=== PATIENT | male | born 1955 | race Caucasian/White ===

== ENCOUNTER 2021-11-06 05:03 | Emergency (ER) | payer OTHER, MEDICARE ==
[~2021-11-06] VITALS: Ht 170.2 cm; Wt 77.8 kg
[~2021-11-06 05:03] MED LIST: DOCU100C40 PO; HYDR-3965 PO
--- NOTE | 2021-11-06 05:11 | NUR ---
PT'S SON'S NAME IS MIKO. PHONE NUMBER IS [phone].
[2021-11-06 06:07] VITALS: BP 111/79
--- NOTE | 2021-11-06 06:25 | NUR ---
DR. BOOTH AT BEDSIDE.
[2021-11-06] MEDS ORDERED: BISA10SU60 RC (06:42)
[2021-11-06] MEDS ORDERED: bisacodyl 10mg suppository rectal RC STA (06:47)
== END 2021-11-06 07:29 | disposition home or self-care (01) ==
LOC: ER 05:03
DX: K59.00 Constipation, unspecified (principal); G89.29 Other chronic pain
CPT/HCPCS: 99282

== ENCOUNTER 2023-06-08 09:26 | Emergency (ER) | payer OTHER, MEDICARE, MEDICAID ==
[~2023-06-08] VITALS: Ht 170.2 cm; Wt 79.5 kg
[~2023-06-08 09:26] MED LIST changes: +CARB-395 PO; +DONE-55 PO
[2023-06-08 09:48] VITALS: BP 146/76; PULSE 99; RESP 18; TEMP 97.8; O2SAT 98
[2023-06-08 10:43] LABS: BASOPHILS % (AUTO) 0.1 % (0-1); EOSINOPHILS % (AUTO) 0.1 % (0-6); HEMOGLOBIN 15.6 g/dl (14.0-17.9); MONOCYTES # (AUTO) 0.6 X10'3 (0-0.9); NEUTROPHILS # (AUTO) 2.1 X10'3 (1.8-7.7)
[2023-06-08 10:45] LABS: HEMATOCRIT 44.3 % (42.0-52.0); LYMPHOCYTES # (AUTO) 4.5 X10'3 (1.1-4.8); MEAN CORPUSCULAR HEMOGLOBIN 32.5 PG (27.0-31.0); MEAN CORPUSCULAR HGB CONC 35.2 g/dL (33.0-36.5); MEAN CORPUSCULAR VOLUME 92.5 FL (78-98); MEAN PLATELET VOLUME 7.7 FL (7.4-10.4); MONOCYTES % (AUTO) 7.9 % (2-12); NEUTROPHILS % (AUTO) 28.9 % (42-75); PLATELET COUNT 200 X10'3 (140-440); RED BLOOD COUNT 4.78 X10'6 (4.70-6.10); RED CELL DISTRIBUTION WIDTH 12.8 % (11.5-14.5); WHITE BLOOD COUNT 7.1 X10'3 (4.5-11.0)
[2023-06-08 11:09] LABS: ALBUMIN 3.8 G/DL (3.4-5.0); ANION GAP 10 (8-16); BLOOD UREA NITROGEN 10 MG/DL (7-18); BUN/CREATININE RATIO 11.6 (10.0-20.0); CHLORIDE 105 MMOL/L (99-107); CREATININE 0.86 MG/DL (0.60-1.10); ETHANOL < 10 MG/DL (<10); GLUCOSE 104 MG/DL (70-104); POTASSIUM 3.7 MMOL/L (3.5-5.1); SODIUM 140 MMOL/L (135-145); TOTAL CARBON DIOXIDE 24.6 MMOL/L (24-32); eCRCL 77 ML/MIN; eGFR 88 ML/MIN
[2023-06-08 11:12] LABS: TOTAL CELLS COUNTED 100
[2023-06-08 11:13] LABS: PLATELET ESTIMATE NORMAL
[2023-06-08 11:15] LABS: SMUDGE CELLS 1+
== END 2023-06-08 17:04 | disposition left against medical advice (07) ==
LOC: ER 09:27
DX: R45.851 Suicidal ideations (principal); Z79.899 Other long term (current) drug therapy; Z88.8 Allergy status to other drugs, medicaments and biological substances
CPT/HCPCS: 80048; 80320; 85007; 85025; 99284; 99285

== ENCOUNTER 2023-06-16 06:47 | Emergency (ER) | payer OTHER, MEDICARE, MEDICAID ==
[~2023-06-16] VITALS: Ht 170.2 cm; Wt 73.0 kg
[2023-06-16 09:25] LABS: BASOPHILS % (AUTO) 0.1 % (0-1); EOSINOPHILS % (AUTO) 0.1 % (0-6); HEMATOCRIT 38.5 % (42.0-52.0); HEMOGLOBIN 13.1 g/dl (14.0-17.9); LYMPHOCYTES # (AUTO) 2.8 X10'3 (1.1-4.8); LYMPHOCYTES % (AUTO) 24.4 % (21-51); MEAN CORPUSCULAR HEMOGLOBIN 31.6 PG (27.0-31.0); MEAN CORPUSCULAR VOLUME 92.9 FL (78-98); MEAN PLATELET VOLUME 7.9 FL (7.4-10.4); MONOCYTES # (AUTO) 0.8 X10'3 (0-0.9); MONOCYTES % (AUTO) 6.9 % (2-12); NEUTROPHILS # (AUTO) 7.9 X10'3 (1.8-7.7); NEUTROPHILS % (AUTO) 68.5 % (42-75); PLATELET COUNT 199 X10'3 (140-440); RED BLOOD COUNT 4.15 X10'6 (4.70-6.10); WHITE BLOOD COUNT 11.5 X10'3 (4.5-11.0)
[2023-06-16] MEDS ORDERED: AZIT-164 PO (09:40)
[2023-06-16 09:53] LABS: ALBUMIN 3.1 G/DL (3.4-5.0); ANION GAP 7 (8-16); BLOOD UREA NITROGEN 15 MG/DL (7-18); BUN/CREATININE RATIO 18.3 (10.0-20.0); CALCIUM 8.4 MG/DL (8.5-10.1); CHLORIDE 108 MMOL/L (99-107); CREATININE 0.82 MG/DL (0.60-1.10); GLUCOSE 98 MG/DL (70-104); POTASSIUM 3.1 MMOL/L (3.5-5.1); PRO BRAIN NATRIURETIC PEPTIDE 401 PG/ML (0-125); SODIUM 144 MMOL/L (135-145); TOTAL CARBON DIOXIDE 28.8 MMOL/L (24-32); eCRCL 81 ML/MIN; eGFR > 90 ML/MIN
[2023-06-16 11:01] VITALS: BP 125/94; PULSE 89; RESP 23; TEMP 98.4; O2SAT 97
== END 2023-06-16 11:06 | disposition home or self-care (01) ==
LOC: ER 06:48
DX: J18.9 Pneumonia, unspecified organism (principal); R05.9 Cough, unspecified; Z88.8 Allergy status to other drugs, medicaments and biological substances; F03.90 Unspecified dementia, unspecified severity, without behavioral disturbance, psychotic disturbance, mood disturbance, and anxiety; G89.29 Other chronic pain; Z20.822 Contact with and (suspected) exposure to COVID-19
CPT/HCPCS: 36415; 71045; 80048; 83880; 84484; 85025; 87502; 87503; 87811; 93005; 99285

== ENCOUNTER 2023-06-19 07:39 | Emergency (ER) | payer OTHER, MEDICARE, MEDICAID ==
[~2023-06-19] VITALS: Ht 170.2 cm; Wt 77.3 kg
[~2023-06-19 07:39] MED LIST changes: +AZIT-164 PO
[2023-06-19 08:48] LABS: BILIRUBIN,URINE NEGATIVE (Neg); CLARITY,URINE CLEAR (Clear); COLOR,URINE YELLOW (Yellow); GLUCOSE, URINE NEGATIVE (Neg); KETONES,URINE NEGATIVE (Neg); LEUKOCYTE ESTERASE ,URINE NEGATIVE (Neg); NITRITES, URINE NEGATIVE (Neg); OCCULT BLOOD,URINE NEGATIVE (Neg); PROTEIN,URINE TRACE mg/dl (Neg)
[2023-06-19 08:49] LABS: BASOPHILS % (AUTO) 0.1 % (0-1); EOSINOPHILS % (AUTO) 0.4 % (0-6); HEMATOCRIT 42.5 % (42.0-52.0); HEMOGLOBIN 14.4 g/dl (14.0-17.9); LYMPHOCYTES # (AUTO) 2.7 X10'3 (1.1-4.8); LYMPHOCYTES % (AUTO) 26.9 % (21-51); MEAN CORPUSCULAR HEMOGLOBIN 31.6 PG (27.0-31.0); MEAN CORPUSCULAR HGB CONC 33.8 g/dL (33.0-36.5); MEAN CORPUSCULAR VOLUME 93.3 FL (78-98); MEAN PLATELET VOLUME 8.3 FL (7.4-10.4); MONOCYTES # (AUTO) 0.9 X10'3 (0-0.9); MONOCYTES % (AUTO) 8.6 % (2-12); NEUTROPHILS # (AUTO) 6.4 X10'3 (1.8-7.7); PLATELET COUNT 271 X10'3 (140-440); RED BLOOD COUNT 4.56 X10'6 (4.70-6.10); RED CELL DISTRIBUTION WIDTH 12.8 % (11.5-14.5)
[2023-06-19 08:53] LABS: ALBUMIN 3.1 G/DL (3.4-5.0); ANION GAP 6 (8-16); BLOOD UREA NITROGEN 8 MG/DL (7-18); BUN/CREATININE RATIO 9.3 (10.0-20.0); CALCIUM 8.6 MG/DL (8.5-10.1); CHLORIDE 104 MMOL/L (99-107); CREATININE 0.86 MG/DL (0.60-1.10); ETHANOL < 10 MG/DL (<10); GLUCOSE 97 MG/DL (70-104); POTASSIUM 3.1 MMOL/L (3.5-5.1); SODIUM 140 MMOL/L (135-145); TOTAL CARBON DIOXIDE 30.1 MMOL/L (24-32); eCRCL 77 ML/MIN; eGFR 88 ML/MIN
[2023-06-19 08:55] LABS: UA COLLECTION TYPE NON-SPECIFIED
[2023-06-19 08:56] LABS: BACTERIA,URINE NONE SEEN /HPF (Neg); MUCUS STRANDS FEW /LPF (Neg); RBC,URINE 0-2 /HPF (0-2); SQUAMOUS EPITHELIAL CELL,UR NONE SEEN /LPF (FEW); WBC,URINE NONE SEEN /HPF (0-4)
[2023-06-19 09:03] LABS: URINE AMPHETAMINE SCREEN NEGATIVE (Neg); URINE BARBITUATE SCREEN NEGATIVE (Neg); URINE BENZODIAZEPINES SCREEN NEGATIVE (Neg); URINE CANNABINOID SCREEN NEGATIVE (Neg); URINE COCAINE SCREEN NEGATIVE (Neg); URINE METHADONE SCREEN NEGATIVE (Neg); URINE OPIATE SCREEN NEGATIVE (Neg); URINE PHENCYCLIDINE SCREEN NEGATIVE (Neg)
[2023-06-19 12:30] VITALS: BP 124/56; PULSE 62; RESP 14; TEMP 97.2; O2SAT 97
== END 2023-06-19 12:33 | disposition home or self-care (01) ==
LOC: ER 07:40
DX: U07.1 COVID-19 (principal); R45.851 Suicidal ideations; Z59.00 Homelessness unspecified; G89.29 Other chronic pain; G20.A1 Parkinson's disease without dyskinesia, without mention of fluctuations; F02.80 Dementia in other diseases classified elsewhere, unspecified severity, without behavioral disturbance, psychotic disturbance, mood disturbance, and anxiety; Z88.8 Allergy status to other drugs, medicaments and biological substances
CPT/HCPCS: 36415; 80048; 80305; 80320; 81001; 85025; 87811; 99284

== ENCOUNTER 2024-05-10 18:57 | Emergency (ER) | payer OTHER, MEDICARE ==
[~2024-05-10] VITALS: Ht 170.2 cm; Wt 79.0 kg
[~2024-05-10 18:57] MED LIST changes: -AZIT-164 PO; -CARB-395 PO; +CARB-491 PO
[2024-05-10 19:46] LABS: BASOPHILS % (AUTO) 0.3 % (0-1); EOSINOPHILS % (AUTO) 0.1 % (0-6); HEMATOCRIT 43.9 % (42.0-52.0); HEMOGLOBIN 14.8 g/dl (14.0-17.9); LYMPHOCYTES # (AUTO) 5.3 X10'3 (1.1-4.8); LYMPHOCYTES % (AUTO) 49.7 % (21-51); MEAN CORPUSCULAR HEMOGLOBIN 32.2 PG (27.0-31.0); MEAN CORPUSCULAR HGB CONC 33.7 g/dL (33.0-36.5); MEAN CORPUSCULAR VOLUME 95.6 FL (78-98); MEAN PLATELET VOLUME 7.2 FL (7.4-10.4); MONOCYTES # (AUTO) 0.7 X10'3 (0-0.9); MONOCYTES % (AUTO) 6.4 % (2-12); NEUTROPHILS # (AUTO) 4.6 X10'3 (1.8-7.7); NEUTROPHILS % (AUTO) 43.5 % (42-75); PLATELET COUNT 274 X10'3 (140-440); RED BLOOD COUNT 4.59 X10'6 (4.70-6.10); RED CELL DISTRIBUTION WIDTH 13.8 % (11.5-14.5); WHITE BLOOD COUNT 10.7 X10'3 (4.5-11.0)
[2024-05-10 20:11] LABS: ALANINE AMINOTRANSFERASE 14 U/L (12-78); ALBUMIN 4.2 G/DL (3.4-5.0); ALBUMIN/GLOBULIN RATIO 1.6 (1.1-1.5); ALKALINE PHOSPHATASE 77 IU/L (46-116); ANION GAP 5 (8-16); ASPARTATE AMINO TRANSFERASE 16 U/L (10-37); BILIRUBIN,TOTAL 0.4 MG/DL (0.1-1.0); BLOOD UREA NITROGEN 14 MG/DL (7-18); BUN/CREATININE RATIO 18.9 (10.0-20.0); CHLORIDE 104 MMOL/L (99-107); CREATININE 0.74 MG/DL (0.60-1.10); GLUCOSE 115 MG/DL (70-104); POTASSIUM 4.1 MMOL/L (3.5-5.1); PRO BRAIN NATRIURETIC PEPTIDE 121 PG/ML (0-125); SODIUM 139 MMOL/L (135-145); TOTAL CARBON DIOXIDE 30.4 MMOL/L (24-32); TOTAL PROTEIN 6.9 G/DL (6.4-8.2); eCRCL 88 ML/MIN; eGFR > 90 ML/MIN
[2024-05-10] MEDS: LORazepam 2 mg/ml vial IV ONE (21:40)
[2024-05-10] MEDS: midazolam 1 mg/ML 2ml injection IV ONE (23:15)
[2024-05-10] MEDS: normal saline 1000ml 1,000 ML IV ONE (23:15)
[2024-05-10 23:21] LABS: BILIRUBIN,URINE NEGATIVE (Neg); CLARITY,URINE CLEAR (Clear); COLOR,URINE YELLOW (Yellow); GLUCOSE, URINE NEGATIVE (Neg); KETONES,URINE TRACE mg/dl (Neg); LEUKOCYTE ESTERASE ,URINE NEGATIVE (Neg); NITRITES, URINE NEGATIVE (Neg); OCCULT BLOOD,URINE NEGATIVE (Neg); PROTEIN,URINE NEGATIVE (Neg); URINE AMPHETAMINE SCREEN NEGATIVE (Neg); URINE BARBITUATE SCREEN NEGATIVE (Neg); URINE BENZODIAZEPINES SCREEN NEGATIVE (Neg); URINE CANNABINOID SCREEN NEGATIVE (Neg); URINE COCAINE SCREEN NEGATIVE (Neg); URINE METHADONE SCREEN NEGATIVE (Neg); URINE OPIATE SCREEN POSITIVE (Neg); URINE PHENCYCLIDINE SCREEN NEGATIVE (Neg); UROBILINOGEN,URINE 0.2 E.U/dL (0.2-1.0)
[2024-05-10 23:29] LABS: UA COLLECTION TYPE CLN CATCH MIDSTREAM
[2024-05-11 00:46] VITALS: BP 140/80; PULSE 99; RESP 24; TEMP 99; O2SAT 100
== END 2024-05-11 01:09 | disposition home or self-care (01) ==
LOC: ER 18:57
DX: Z00.00 Encounter for general adult medical examination without abnormal findings (principal); F02.82 Dementia in other diseases classified elsewhere, unspecified severity, with psychotic disturbance; G20.A1 Parkinson's disease without dyskinesia, without mention of fluctuations; Z88.8 Allergy status to other drugs, medicaments and biological substances
CPT/HCPCS: 36415; 71045; 80053; 80305; 81003; 83605; 83880; 84145; 84484; 85025; 87040; 93005; 96361; 96374; 96375; 99285; J2060; J2250; J7030

== ENCOUNTER 2024-05-11 18:45 | Emergency (ER) | payer OTHER, MEDICARE ==
[~2024-05-11] VITALS: Ht 170.2 cm; Wt 175.0 kg
[2024-05-11 18:48] VITALS: TEMP 98.2
[2024-05-11 19:34] LABS: BASOPHILS % (AUTO) 0.2 % (0-1); EOSINOPHILS % (AUTO) 0.3 % (0-6); HEMATOCRIT 42.3 % (42.0-52.0); HEMOGLOBIN 14.6 g/dl (14.0-17.9); LYMPHOCYTES # (AUTO) 5.3 X10'3 (1.1-4.8); LYMPHOCYTES % (AUTO) 60.8 % (21-51); MEAN CORPUSCULAR HGB CONC 34.6 g/dL (33.0-36.5); MEAN CORPUSCULAR VOLUME 95.3 FL (78-98); MEAN PLATELET VOLUME 7.3 FL (7.4-10.4); MONOCYTES # (AUTO) 0.5 X10'3 (0-0.9); MONOCYTES % (AUTO) 5.4 % (2-12); NEUTROPHILS # (AUTO) 2.9 X10'3 (1.8-7.7); NEUTROPHILS % (AUTO) 33.3 % (42-75); PLATELET COUNT 245 X10'3 (140-440); RED BLOOD COUNT 4.44 X10'6 (4.70-6.10); RED CELL DISTRIBUTION WIDTH 13.8 % (11.5-14.5); WHITE BLOOD COUNT 8.7 X10'3 (4.5-11.0)
[2024-05-11] MEDS: normal saline 1000ml 1,000 ML IV ONE (19:36)
[2024-05-11 19:37] LABS: APTT 27 SECONDS (22-32); D-DIMER 0.23 MG/L FEU (0-0.50); PROTHROMBIN TIME 10.6 SECONDS (9.0-12.0)
[2024-05-11 19:54] LABS: TOTAL CELLS COUNTED 100
[2024-05-11 19:56] LABS: SMUDGE CELLS FEW
[2024-05-11 19:57] LABS: ALANINE AMINOTRANSFERASE 17 U/L (12-78); ALBUMIN/GLOBULIN RATIO 1.5 (1.1-1.5); ALKALINE PHOSPHATASE 75 IU/L (46-116); ANION GAP 6 (8-16); ASPARTATE AMINO TRANSFERASE 17 U/L (10-37); BILIRUBIN,TOTAL 0.4 MG/DL (0.1-1.0); BLOOD UREA NITROGEN 9 MG/DL (7-18); BUN/CREATININE RATIO 11.1 (10.0-20.0); CALCIUM 8.8 MG/DL (8.5-10.1); CHLORIDE 106 MMOL/L (99-107); CREATININE 0.81 MG/DL (0.60-1.10); GLUCOSE 97 MG/DL (70-104); POTASSIUM 3.9 MMOL/L (3.5-5.1); SODIUM 141 MMOL/L (135-145); TOTAL CARBON DIOXIDE 29.3 MMOL/L (24-32); TOTAL PROTEIN 6.6 G/DL (6.4-8.2); eCRCL 80 ML/MIN; eGFR > 90 ML/MIN
[2024-05-11 20:06] LABS: ETHANOL < 10 MG/DL (<10); MAGNESIUM 2.2 MG/DL (1.5-2.4); THYROID STIMULATING HORMONE 1.53 ulU/ml (0.34-4.50)
[2024-05-11 21:57] LABS: BILIRUBIN,URINE NEGATIVE (Neg); CLARITY,URINE SLIGHTLY CLOUDY (Clear); COLOR,URINE YELLOW (Yellow); GLUCOSE, URINE NEGATIVE (Neg); KETONES,URINE NEGATIVE (Neg); LEUKOCYTE ESTERASE ,URINE NEGATIVE (Neg); NITRITES, URINE NEGATIVE (Neg); OCCULT BLOOD,URINE LARGE (Neg); PROTEIN,URINE NEGATIVE (Neg); UROBILINOGEN,URINE 0.2 E.U/dL (0.2-1.0)
[2024-05-11 22:00] LABS: UA COLLECTION TYPE VOIDED
[2024-05-11 22:04] LABS: BACTERIA,URINE NONE SEEN /HPF (Neg); RBC,URINE 20-50 /HPF (0-2); SQUAMOUS EPITHELIAL CELL,UR NONE SEEN /LPF (FEW); WBC,URINE 0-4 /HPF (0-4)
[2024-05-11 22:24] LABS: URINE AMPHETAMINE SCREEN NEGATIVE (Neg); URINE BARBITUATE SCREEN NEGATIVE (Neg); URINE BENZODIAZEPINES SCREEN NEGATIVE (Neg); URINE CANNABINOID SCREEN NEGATIVE (Neg); URINE COCAINE SCREEN NEGATIVE (Neg); URINE METHADONE SCREEN NEGATIVE (Neg); URINE OPIATE SCREEN POSITIVE (Neg); URINE PHENCYCLIDINE SCREEN NEGATIVE (Neg)
[2024-05-11 23:31] VITALS: BP 125/81; PULSE 87; RESP 18; O2SAT 97
== END 2024-05-11 23:35 | disposition home or self-care (01) ==
LOC: ER 18:46
DX: H53.8 Other visual disturbances (principal); F02.80 Dementia in other diseases classified elsewhere, unspecified severity, without behavioral disturbance, psychotic disturbance, mood disturbance, and anxiety; G20.A1 Parkinson's disease without dyskinesia, without mention of fluctuations
CPT/HCPCS: 36415; 70450; 80053; 80305; 80320; 81001; 82140; 83735; 84443; 84484; 85007; 85025; 85379; 85610; 85730; 93005; 96360; 99285; J7030; 96361

== ENCOUNTER 2024-06-11 01:50 | Inpatient (IN) | payer OTHER, MEDICARE ==
[~2024-06-11] VITALS: Ht 170.2 cm; Wt 66.0 kg
[2024-06-11] VITALS (11 sets, daily range): BP systolic 120–157; BP diastolic 53–98; PULSE 78–90; RESP 13–18; TEMP 98; O2SAT 96–99
[2024-06-11 02:25] LABS: BASOPHILS % (AUTO) 0.1 % (0-1); EOSINOPHILS # (AUTO) 0.1 X10'3 (0-0.9); EOSINOPHILS % (AUTO) 0.7 % (0-6); HEMATOCRIT 39.2 % (42.0-52.0); HEMOGLOBIN 13.4 g/dl (14.0-17.9); LYMPHOCYTES # (AUTO) 4.7 X10'3 (1.1-4.8); LYMPHOCYTES % (AUTO) 54.3 % (21-51); MEAN CORPUSCULAR HGB CONC 34.1 g/dL (33.0-36.5); MEAN CORPUSCULAR VOLUME 96.8 FL (78-98); MEAN PLATELET VOLUME 7.1 FL (7.4-10.4); MONOCYTES # (AUTO) 0.7 X10'3 (0-0.9); MONOCYTES % (AUTO) 8.3 % (2-12); NEUTROPHILS # (AUTO) 3.2 X10'3 (1.8-7.7); NEUTROPHILS % (AUTO) 36.6 % (42-75); PLATELET COUNT 232 X10'3 (140-440); RED BLOOD COUNT 4.06 X10'6 (4.70-6.10); RED CELL DISTRIBUTION WIDTH 13.9 % (11.5-14.5); WHITE BLOOD COUNT 8.6 X10'3 (4.5-11.0)
[2024-06-11 02:36] LABS: ALANINE AMINOTRANSFERASE 17 U/L (12-78); ALBUMIN 3.6 G/DL (3.4-5.0); ALBUMIN/GLOBULIN RATIO 1.5 (1.1-1.5); ALKALINE PHOSPHATASE 70 IU/L (46-116); ANION GAP 4 (8-16); ASPARTATE AMINO TRANSFERASE 18 U/L (10-37); BILIRUBIN,TOTAL 0.3 MG/DL (0.1-1.0); BLOOD UREA NITROGEN 12 MG/DL (7-18); BUN/CREATININE RATIO 15.2 (10.0-20.0); CALCIUM 8.9 MG/DL (8.5-10.1); CHLORIDE 107 MMOL/L (99-107); CREATININE 0.79 MG/DL (0.60-1.10); GLUCOSE 93 MG/DL (70-104); POTASSIUM 3.5 MMOL/L (3.5-5.1); SODIUM 141 MMOL/L (135-145); TOTAL CARBON DIOXIDE 30.4 MMOL/L (24-32); eCRCL 82 ML/MIN; eGFR > 90 ML/MIN
[2024-06-11 02:43] LABS: PRO BRAIN NATRIURETIC PEPTIDE 120 PG/ML (0-125)
[2024-06-11 02:57] LABS: PLATELET ESTIMATE NORMAL; TOTAL CELLS COUNTED 100
[2024-06-11] MEDS ORDERED: ondansetron/PF 4mg/2ml inj IV PRN (05:35)
[2024-06-11] MEDS ORDERED: magnesium sulf-water 2g/50mL 50 ML IV PRN (05:35)
[2024-06-11] MEDS ORDERED: morphine 2 MG/ML inj. syringe IV PRN ×2 (05:35)
[2024-06-11] MEDS ORDERED: magnesium hydroxide 30ml (MOM) UD suspension PO PRN (05:35)
[2024-06-11] MEDS ORDERED: acetaminophen 325mg tablet PO PRN (05:35)
[2024-06-11] MEDS ORDERED: mag hydrox/Alum hydrox/simeth 30ml oral suspension PO PRN (05:35)
[2024-06-11] MEDS ORDERED: magnesium sulf-water 4G/100mL 100 ML IV PRN (05:35)
[2024-06-11] MEDS ORDERED: potassium Cl 40MEQ/1/2NS 520ml 520 ML IV PRN (05:35)
[2024-06-11] MEDS ORDERED: magnesium Cl slow-release 64mg tablet PO PRN (05:35)
[2024-06-11 06:24] LABS: APTT 27 SECONDS (22-32)
[2024-06-11] MEDS: propranolol 10mg tablet PO ONE (06:34)
[2024-06-11 06:48] LABS: D-DIMER 0.31 MG/L FEU (0-0.50)
[2024-06-11] MEDS: K and/or MAG REPLACEMENT MC SCH (08:00)
[2024-06-11] MEDS: docusate sod 100mg capsule PO SCH (08:18)
[2024-06-11] MEDS: enoxaparin 40mg/0.4ml syringe SUBCUT SCH (08:19)
[2024-06-11] MEDS ORDERED: nitroGLYCERIN 0.4mg SUBLingual tab SL PRN ×2 (08:40→14:25)
[2024-06-11] MEDS ORDERED: metoprolol tartrate 1mg/ml inj IV PRN (08:40)
[2024-06-11] MEDS ORDERED: aminophylline 500mg/20ml vial IV PRN (08:40)
[2024-06-11 08:52] LABS: MAGNESIUM 2.2 MG/DL (1.5-2.4)
[2024-06-11 09:25] LABS: CHOL/HDL RATIO 3.6 (0.00-4.99); CHOLESTEROL 185 MG/DL (0-200); HDL CHOLESTEROL 51 MG/DL (35-60); LDL CHOLESTEROL 108 MG/DL (50-100); TRIGLYCERIDES 114 MG/DL (20-135)
[2024-06-11] MEDS: regadenoson 0.4mg/5ml syringe IV PRN (11:17)
[2024-06-11] MEDS ORDERED: HYDROcodone/acetaminophen 5mg/325mg tablet PO PRN (14:25)
[2024-06-11] MEDS ORDERED: docusate sod 100mg capsule PO SCH (20:00)
[2024-06-11] MEDS: carbidoba-levodopa 25-100mg tablet PO SCH (20:21)
[2024-06-11] MEDS: donepezil 5mg tablet PO SCH (20:21)
[2024-06-11] MEDS: sacubitril/valsartan 24mg-26mg tablet PO SCH (20:22)
[2024-06-12] VITALS (8 sets, daily range): BP systolic 71–115; BP diastolic 36–75; PULSE 64–76; RESP 14–20; TEMP 98.2–98.4; O2SAT 93–96
[2024-06-12 06:38] LABS: BASOPHILS % (AUTO) 0.1 % (0-1); EOSINOPHILS # (AUTO) 0.1 X10'3 (0-0.9); EOSINOPHILS % (AUTO) 0.8 % (0-6); HEMATOCRIT 39.7 % (42.0-52.0); HEMOGLOBIN 13.6 g/dl (14.0-17.9); LYMPHOCYTES # (AUTO) 3.9 X10'3 (1.1-4.8); LYMPHOCYTES % (AUTO) 52.2 % (21-51); MEAN CORPUSCULAR HEMOGLOBIN 32.7 PG (27.0-31.0); MEAN CORPUSCULAR HGB CONC 34.3 g/dL (33.0-36.5); MEAN CORPUSCULAR VOLUME 95.5 FL (78-98); MEAN PLATELET VOLUME 7.4 FL (7.4-10.4); MONOCYTES # (AUTO) 0.6 X10'3 (0-0.9); MONOCYTES % (AUTO) 7.3 % (2-12); NEUTROPHILS % (AUTO) 39.6 % (42-75); PLATELET COUNT 235 X10'3 (140-440); RED BLOOD COUNT 4.15 X10'6 (4.70-6.10); RED CELL DISTRIBUTION WIDTH 13.7 % (11.5-14.5); WHITE BLOOD COUNT 7.5 X10'3 (4.5-11.0)
[2024-06-12 07:02] LABS: ALBUMIN 3.4 G/DL (3.4-5.0); ANION GAP 8 (8-16); BLOOD UREA NITROGEN 16 MG/DL (7-18); CALCIUM 8.6 MG/DL (8.5-10.1); CHLORIDE 105 MMOL/L (99-107); CHOL/HDL RATIO 3.9 (0.00-4.99); CHOLESTEROL 167 MG/DL (0-200); CREATININE 0.64 MG/DL (0.60-1.10); GLUCOSE 83 MG/DL (70-104); HDL CHOLESTEROL 43 MG/DL (35-60); LDL CHOLESTEROL 96 MG/DL (50-100); MAGNESIUM 2.1 MG/DL (1.5-2.4); POTASSIUM 3.3 MMOL/L (3.5-5.1); SODIUM 142 MMOL/L (135-145); TOTAL CARBON DIOXIDE 29.1 MMOL/L (24-32); TRIGLYCERIDES 163 MG/DL (20-135); eCRCL 102 ML/MIN; eGFR > 90 ML/MIN
[2024-06-12] MEDS: aspirin 81mg tab.chew PO SCH (07:53)
[2024-06-12] MEDS: EMPAGLIFLOZIN 10 MG TABLET PO SCH (07:56)
[2024-06-12] MEDS: potassium Cl 20 mEq SR tablet PO PRN ×2 (07:57→20:49)
[2024-06-12] MEDS: atorvastatin 20mg tablet PO SCH (08:00)
[2024-06-12] MEDS: metoprolol succinate 25mg (24-HOUR) SR. Tablet PO SCH (08:01)
[2024-06-12] MEDS: FLUoxetine 20mg capsule PO SCH (10:18)
[2024-06-12] MEDS: Melatonin 3mg tablet PO PRN (20:45)
[2024-06-13 02:00] VITALS: BP 100/56; PULSE 63; RESP 11; TEMP 97.1; O2SAT 98
[2024-06-13 06:52] LABS: BASOPHILS % (AUTO) 0.1 % (0-1); EOSINOPHILS % (AUTO) 0.4 % (0-6); HEMATOCRIT 41.9 % (42.0-52.0); HEMOGLOBIN 14.1 g/dl (14.0-17.9); LYMPHOCYTES # (AUTO) 4.2 X10'3 (1.1-4.8); LYMPHOCYTES % (AUTO) 53.8 % (21-51); MEAN CORPUSCULAR HGB CONC 33.5 g/dL (33.0-36.5); MEAN CORPUSCULAR VOLUME 95.5 FL (78-98); MEAN PLATELET VOLUME 7.5 FL (7.4-10.4); MONOCYTES # (AUTO) 0.6 X10'3 (0-0.9); MONOCYTES % (AUTO) 7.7 % (2-12); PLATELET COUNT 244 X10'3 (140-440); RED BLOOD COUNT 4.39 X10'6 (4.70-6.10); RED CELL DISTRIBUTION WIDTH 13.7 % (11.5-14.5); WHITE BLOOD COUNT 7.8 X10'3 (4.5-11.0)
[2024-06-13 07:00] VITALS: BP 119/52; PULSE 75; RESP 20; TEMP 98.3; O2SAT 97
[2024-06-13 07:14] LABS: ALBUMIN 3.5 G/DL (3.4-5.0); ANION GAP 5 (8-16); BLOOD UREA NITROGEN 14 MG/DL (7-18); BUN/CREATININE RATIO 20.9 (10.0-20.0); CALCIUM 8.7 MG/DL (8.5-10.1); CHLORIDE 108 MMOL/L (99-107); CREATININE 0.67 MG/DL (0.60-1.10); GLUCOSE 95 MG/DL (70-104); MAGNESIUM 2.3 MG/DL (1.5-2.4); POTASSIUM 4.2 MMOL/L (3.5-5.1); SODIUM 143 MMOL/L (135-145); TOTAL CARBON DIOXIDE 30.1 MMOL/L (24-32); eCRCL 97 ML/MIN; eGFR > 90 ML/MIN
[2024-06-13] MEDS ORDERED: ASPI81TA53 PO (08:24)
[2024-06-13] MEDS ORDERED: METO-395 PO (08:24)
[2024-06-13] MEDS ORDERED: EMPA10TA PO (08:24)
[2024-06-13] MEDS ORDERED: ATOR20TA66 PO (08:24)
[2024-06-13] MEDS ORDERED: FLUO-167 PO (08:24)
[2024-06-13 08:58] LABS: TOTAL CELLS COUNTED 100
[2024-06-13 09:01] LABS: PLATELET ESTIMATE NORMAL
[2024-06-13] MEDS: acetaminophen 325mg tablet PO PRN (09:15)
[2024-06-13 12:00] VITALS: BP 112/64; PULSE 70; RESP 20; TEMP 98.2; O2SAT 98
[2024-06-13] MEDS ORDERED: LOSA50TA64 PO (12:39)
[2024-06-13 15:00] VITALS: BP 89/49; PULSE 68; RESP 16; TEMP 97.9; O2SAT 96
== END 2024-06-13 14:56 | disposition home health service (06) | DRG 311 ==
LOC: ER 01:51 → ED HOLD 05:37 → PCU 3S 12:08
PROVIDERS: ADMIT Internal Medicine Critical Care Medicine; ATTEND Family Medicine
PROC: 4A02XM4 Measurement of Cardiac Total Activity, External Approach (ICD-10-PCS; principal; 2024-06-11)
PROC: 3E033HZ Introduction of Radioactive Substance into Peripheral Vein, Percutaneous Approach (ICD-10-PCS; 2024-06-11)
DX: I20.0 Unstable angina (principal); I50.23 Acute on chronic systolic (congestive) heart failure; F02.84 Dementia in other diseases classified elsewhere, unspecified severity, with anxiety; F02.83 Dementia in other diseases classified elsewhere, unspecified severity, with mood disturbance; E87.1 Hypo-osmolality and hyponatremia; I11.0 Hypertensive heart disease with heart failure; Z20.822 Contact with and (suspected) exposure to COVID-19; G89.29 Other chronic pain; G20.A1 Parkinson's disease without dyskinesia, without mention of fluctuations; Z66 Do not resuscitate; Z80.1 Family history of malignant neoplasm of trachea, bronchus and lung
CPT/HCPCS: 36415; 71045; 78452; 80048; 80053; 80061; 83036; 83735; 83880; 84484; 85007; 85025; 85379; 85610; 85730; 87081; 87502; 87503; 87811; 93005; 93017; 93306; 97116; 97161; 97530; 99285; A9500; G0378; J1650; J2785

== ENCOUNTER 2024-07-12 06:43 | Inpatient (IN) | payer OTHER, MEDICARE ==
[~2024-07-12] VITALS: Ht 170.2 cm; Wt 71.0 kg
[~2024-07-12 06:43] MED LIST changes: +ASPI81TA53 PO; +ATOR20TA66 PO; +EMPA10TA PO; +FLUO-167 PO; +LOSA50TA64 PO; +METO-395 PO
[2024-07-12] MEDS: ketorolac trometh 30MG/ML vial 30 MG/ML VIAL IM ONE (06:55)
--- NOTE | 2024-07-12 06:55 | Physician Documentation ---
History of Present Illness ~ Stated Complaint: KNEE PAIN Time Seen by MD: 06:44 Primary Medical Doctor: SAHIL FIELD This is a 68-year-old gentleman with a known injury to the left knee two months ago who presents for evaluation of progressive worsening knee pain that got worse yesterday evening without any obvious trigger, trauma provocation. Worse with any attempt to ambulate and he is no longer able to walk. Palliated with the position of comfort and he is pain-free when he came in the position of comfort. Otherwise the pain is moderate to severe in its intensity. Denies any new trauma. States my knee is gone. Denies any other symptoms. No concern for tobacco, alcohol or illicit substances use. Tetanus witin 5 years: No (UNKOWN) Medication Reconciliation Allergies: Coded Allergies: pseudoephedrine (Unverified Adverse Reaction, Mild, URINARY RETENTION, 07/12/24) Scheduled Aspirin (Children's Aspirin), 81 MG PO DAILY@0830 Atorvastatin Calcium (Atorvastatin Calcium), 40 MG PO DAILY Carbidopa/Levodopa (Carbidopa-Levodopa 25-100 Tab), 1 EACH PO TID, (Reported) Docusate Sodium (Docusate Sodium), 1 CAP PO BID, (Reported) Donepezil Hcl (Donepezil Hcl), 10 MG PO HS, (Reported) Empagliflozin (Jardiance), 1 TAB PO DAILY Fluoxetine HCl (Fluoxetine HCl), 20 MG PO DAILY Losartan Potassium (Losartan Potassium), 25 MG PO DAILY Metoprolol Succinate (Metoprolol Succinate), 25 MG PO DAILY Scheduled PRN Hydrocodone Bit/Acetaminophen 5/325 MG ([place] 5/325 MG), 1 TAB PO Q4H PRN for moderate or severe pain, (Reported) Past Medical History Past Medical History: Dementia, Parkinson's Disease, Chronic Pain, *PSYCH* Past Surgical History: abdominal surgery Patient History: FH: lung cancer MOTHER, , Age: 60 years and older FH: lymphoma, malignant Sister, , Age: 60 years and older Overdose FATHER, , Age: 50's - 60 Alcohol Use: None Drug Use: none Lives with: Alone Lives In: Home Review of Systems ROS 10 point review of systems was performed and unless noted above in HPI is negative for acute process/complaint. Physical Exam Vital Signs: RN Vital Signs have been reviewed: Yes Physical Exam Physical examination: GENERAL: Awake, alert, oriented, GCS 15, no apparent distress, non-toxic appearing, answers questions, follows commands appropriately. HEENT: Atraumatic, normocephalic, pupils equal, extraocular muscles intact Active gross movements, sclerae anicteric, mucus membranes moist, no stridor. NECK: Midline, no JVD CARDIOVASCULAR: Good skin perfusion without evidence of pallor, mottling. PULMONARY: Nonlabored, symmetric chest rise, no audible wheezing, no accessory muscle use, no respiratory distress, speaking in full sentences. GASTROINTESTINAL: Not distended. NEUROLOGIC: Lucid with normal mental status. Normal facial symmetry. Moves all extremities symmetrically and with purpose. No truncal ataxia. Speech is fluid without evidence of dysarthria or aphasia, no focal deficits appreciated. EXTREMITIES: Acute deformities Skin: warm, dry PSYCHIATRIC: Normal affect, normal insight, normal concentration. Focused exam: Left knee is examined. He is wearing a brace. There is no obvious deformity. Range of motion limited by pain. Neurovascularly intact distally. No obvious tenderness to palpation anywhere. Procedures Procedures Arthrocentesis Performed by: Addie Giron Authorized by: Addie Giron Consent: Verbal consent obtained. Written consent obtained. Risks and benefits: risks, benefits and alternatives were discussed Consent given by: patient Patient understanding: patient states understanding of the procedure being performed Patient consent: the patient's understanding of the procedure matches consent given Procedure consent: procedure consent matches procedure scheduled Required items: required blood products, implants, devices, and special equipment available Patient identity confirmed: arm band and verbally with patient Time out: Immediately prior to procedure a "time out" was called to verify the correct patient, procedure, equipment, network support engineer and site/side marked as required. Preparation: Patient was prepped and draped in the usual sterile fashion. Local anesthesia used: yes Anesthesia: local infiltration Local anesthetic: lidocaine 1% without epinephrine Anesthetic total: 4 ml Patient sedated: no Location: knee Technique: Lateral approach Patient tolerance: Patient tolerated the procedure well with no immediate complications. Comments: 20 ccs removed. Patient did have a parkinsonian spasm resultant in needle coming out of his knee and then when he bent the knee back going back into the knee joint space approximately 2 mm away from the original site. All of this was well with a and a sterile field and sterilelity to was preserved. Progress Results/Orders Results/Orders Orders - JOSE GUADALUPE GIRON DO Ct Lower Extremity (07/12/24 09:13) Monitor (07/12/24 07:09) Saline Lock (07/12/24 07:09) Normal Saline 1000ml (Sodium Chloride 10 (07/12/24 07:10) Hs Troponin I W Calculations (07/12/24 10:09) * Miscellaneous Nursing Orders (07/12/24 10:16) Page Hospitalist (07/12/24 10:49) Fill Out Med Reconciliation (07/12/24 10:49) Completed Orders - JOSE GUADALUPE GIRON DO Ct Lower Extremity (07/12/24 09:13) Ketorolac Trometh 30mg/Ml Vial (Toradol (07/12/24 06:55) Electrocardiogram (07/12/24 07:09) Cbc/Diff (07/12/24 07:09) CK (07/12/24 07:09) ESR (07/12/24 07:09) C-Reactive Protein (07/12/24 07:09) Pt Inr (07/12/24 07:09) PTT (07/12/24 07:09) PBNP (07/12/24 07:09) MG (07/12/24 07:09) CMP (07/12/24 07:09) Hs Troponin I W Calculations (07/12/24 07:09) Hs Troponin I W Calculations (07/12/24 09:09) Carbidopa-Levodopa Tablet (Sinemet 25-10 (07/12/24 08:55) Medications Received in ER Medications (Trade) Dose Ordered Sig/Jani Route PRN Reason Start Time Stop Time Status Last Admin Dose Admin (sodium chloride 1000ml IV soln) 2,000 ml PRN PRN IVB low blood pressure 07/12/24 07:10 07/12/24 07:24 2,000 ML (Sinemet 25-100MG tablet) 1 tab ONCE ONCE PO 07/12/24 08:55 07/12/24 08:57 DC 07/12/24 09:39 1 TAB Vital Signs 07/12/24 07/12/24 07/12/24 06:59 07:35 09:38 Temp 98.0 98.0 Pulse 69 63 66 Resp 16 11 14 B/P (MAP) 81/44 100/48 (65) 130/70 (90) Pulse Ox 97 97 99 O2 Flow Rate 0 Laboratory Tests Test 07/12/24 07:22 07/12/24 09:29 White Blood Count 10.1 Red Blood Count 4.15 L Hemoglobin 13.6 L Hematocrit 39.4 L Mean Corpuscular Volume 95.1 Mean Corpuscular Hemoglobin 32.7 H Mean Corpuscular Hemoglobin Concent 34.4 Red Cell Distribution Width 13.6 Platelet Count 207 Mean Platelet Volume 7.3 L Neutrophils (%) (Auto) 51.9 Lymphocytes (%) (Auto) 41.0 Monocytes (%) (Auto) 5.8 Eosinophils (%) (Auto) 1.3 Basophils (%) (Auto) 0 Neutrophils # (Auto) 5.3 Lymphocytes # (Auto) 4.1 Monocytes # (Auto) 0.6 Eosinophils # (Auto) 0.1 Basophils # (Auto) 0.0 CBC Comment Erythrocyte Sedimentation Rate 2 Prothrombin Time 10.4 INR International Normalized Ratio 1.0 Activated Partial Thromboplast Time 26 Coagulation Comments Sodium Level 144 Potassium Level 4.3 Chloride Level 108 H Carbon Dioxide Level 27.3 Anion Gap 9 Blood Urea Nitrogen 18 Creatinine 0.66 Estimated GFR/1.73 m2 > 90 BUN/Creatinine Ratio 27.3 H Glucose Level 97 Calcium Level 8.8 Magnesium Level 2.4 Total Bilirubin 0.5 Aspartate Amino Transf (AST/SGOT) 20 Alanine Aminotransferase (ALT/SGPT) 7 L Alkaline Phosphatase 72 Total Creatine Kinase 122 Troponin I High Sensitivity 7 7 C-Reactive Protein < 0.05 Pro-B-Type Natriuretic Peptide 235 H Total Protein 6.3 L Albumin 3.9 Globulin 2.4 L Albumin/Globulin Ratio 1.6 H Chemistry Comments Troponin I High Sens Percent Delta 0 Troponin I Hi Sens Absolute Change 0 EKG/XRAY/CT/US/VASC/MRI EKG : Additional Comment EKG was obtained at my request and interpreted by myself shows sinus rhythm of 63, normal [place] interval, narrow QRS, no QT prolongation, left axis, T-wave inversion in lead three noted. No STEMI. Medical Decision Making Findings Facility Status: ED Holds, RME process The plan was discussed with the patient, who demonstrates clear understanding of the plan and is in agreement with the plan unless otherwise noted in the chart. All questions have been answered, all concerns were addressed unless otherwise documented. I was available throughout their ED stay for frequent reassessment and questions. Differential Diagnoses (considered and possible or likely): [Severe degenerative disease/arthritis, less likely fracture or dislocation of the left knee] ??Differential Diagnoses (considered and unlikely, not requiring evaluation currently): [No evidence of neurovascular injury] MDM Data Please see [facility] for the following: Independent Historians and external Records Review. Historian: [Patient] Independent Historians: ?[EMS, record review] Medication Management: [Reviewed medication list] Social History and determinants: [Reviewed] Please see the body of the note for the following: Any independent interpretations of ECG, imaging studies. All vitals signs/haemodynamics, ordered tests were independently reviewed and interpreted by myself. Nursing triage complaint and vitals reviewed, additional nursing notes were reviewed as available and I agree unless otherwise noted or documented in con tradiction in the chart Vital Signs: Independently reviewed Labs: Independently interpreted Imaging: Independently interpreted Old Medical Records: Independently reviewed, see HPI for relevant summary and information Pulse Oximetry: [98%] interpreted as [normal on room air] by me Additionally notably showing: [Hemodynamically stable. Laboratory workup notable for dehydration and minimally elevation of BNP. CT shows severe arthritis and moderate to large joint effusion.] Tests considered but not ordered include: [Not applicable] Social Determinants of Health Impact: Patient was evaluated in [facility] [place] with limited access to healthcare due to below par ratio of patient to medical providers. [] Comorbid Conditions Impacting Present Evaluation and Care/Treatment: [Multiple including Parkinson's] Management Discussions with other Healthcare Providers: [Hospitalist regarding admission] Treatment and Disposition Medication Management (Given or considered): []. See EMR for details Consideration for Hospitalization/Escalation/Deescalation of Care: Admission for observation has been considered, and we will require admission due to his inability to ambulate ?ED Course:?[ 07/12/24@0711 I was not notified by nursing staff with the gentleman was repeatedly hypotensive. Differential diagnosis will be expanded to dehydration, electrolyte derangement, ACS, infection including pneumonia, urinary tract infection, occult bacteremia, has a reason for his hypotension. He will be provided with fluid resuscitation. Upon further discussion he reports no history of hypotension, does report history of hypotension and reports that he recently has been started on varus hypotension medicines. ] ?Shared decision making:?[] Code status:?FULL Please see the full Electronic Medical Record for full details of nursing documentation, medications list, other records of complete past medical history and conditions, vital signs, laboratory studies, and any radiologic study interpretations by radiologists. Portions of this note were completed using Bridge[employer] dictation software and as a result there may exist minor errors in spelling. I have reviewed elements of past family and social history and agree as included in note. Departure Disposition: ADMITTED INPATIENT Admitted to Inpatient Unit: to hospitalist Impression: Primary Impression: Knee pain Additional Impressions: Effusion of knee Unable to ambulate Transient hypotension Condition: Improved Referrals: NO PRIMARY CARE PROVIDER (PCP) Education Educated: Patient Educated regarding: diagnosis, treatment, prognosis Signature Scribe Signature: No scribe Attestation: This note accurately reflects clinical decisions, work performed by myself, Jose Guadalupe Giron, JOSE GUADALUPE MONTANA DO July 12, 2024 06:55
[2024-07-12] MEDS: normal saline 1000ML IV soln IVB PRN (07:24)
--- NOTE | 2024-07-12 07:39 | ELECTROCARDIOGRAPH REPORT ---
[facility] Test Date: 2024-07-12 Test Time: 07:37:14 Pat Name: ADRIANA KIDD Department: [facility]- Patient ID: [facility]-[id number] Room: [facility] [place] Gender: M Procurement Specialist: : 1955 Requested By: MATT GIRON Order Number: [id number] Reading MD: Dr. Abdifatah Rhodes Measurements Intervals [place] Rate: 63 P: 18 HI: 152 QRS: -55 QRSD: 106 T: 1 QT: 425 QTc: 436 Interpretive Statements Sinus rhythm Left anterior fascicular block Low voltage, precordial leads Abnormal R-wave progression, late transition Baseline wander in lead(s) V1,V2 Electronically Signed On 07-13-2024 15:45:[address] Abdifatah Rhodes Please click the below link to view image of tracing.
[2024-07-12 07:46] LABS: APTT 26 SECONDS (22-32); PROTHROMBIN TIME 10.4 SECONDS (9.0-12.0)
[2024-07-12 07:48] LABS: ALBUMIN 3.9 G/DL (3.4-5.0); ALBUMIN/GLOBULIN RATIO 1.6 (1.1-1.5); ALKALINE PHOSPHATASE 72 IU/L (46-116); ANION GAP 9 (8-16); ASPARTATE AMINO TRANSFERASE 20 U/L (10-37); BILIRUBIN,TOTAL 0.5 MG/DL (0.1-1.0); BLOOD UREA NITROGEN 18 MG/DL (7-18); BUN/CREATININE RATIO 27.3 (10.0-20.0); CALCIUM 8.8 MG/DL (8.5-10.1); CHLORIDE 108 MMOL/L (99-107); CREATININE 0.66 MG/DL (0.60-1.10); GLUCOSE 97 MG/DL (70-104); POTASSIUM 4.3 MMOL/L (3.5-5.1); SODIUM 144 MMOL/L (135-145); TOTAL CARBON DIOXIDE 27.3 MMOL/L (24-32); TOTAL PROTEIN 6.3 G/DL (6.4-8.2); eCRCL 99 ML/MIN; eGFR > 90 ML/MIN
[2024-07-12 07:49] LABS: BASOPHILS % (AUTO) 0 % (0-1); EOSINOPHILS # (AUTO) 0.1 X10'3 (0-0.9); EOSINOPHILS % (AUTO) 1.3 % (0-6); HEMATOCRIT 39.4 % (42.0-52.0); HEMOGLOBIN 13.6 g/dl (14.0-17.9); LYMPHOCYTES # (AUTO) 4.1 X10'3 (1.1-4.8); MEAN CORPUSCULAR HEMOGLOBIN 32.7 PG (27.0-31.0); MEAN CORPUSCULAR HGB CONC 34.4 g/dL (33.0-36.5); MEAN CORPUSCULAR VOLUME 95.1 FL (78-98); MEAN PLATELET VOLUME 7.3 FL (7.4-10.4); MONOCYTES # (AUTO) 0.6 X10'3 (0-0.9); MONOCYTES % (AUTO) 5.8 % (2-12); NEUTROPHILS # (AUTO) 5.3 X10'3 (1.8-7.7); NEUTROPHILS % (AUTO) 51.9 % (42-75); PLATELET COUNT 207 X10'3 (140-440); RED BLOOD COUNT 4.15 X10'6 (4.70-6.10); RED CELL DISTRIBUTION WIDTH 13.6 % (11.5-14.5); WHITE BLOOD COUNT 10.1 X10'3 (4.5-11.0)
[2024-07-12 07:55] LABS: CREATINE KINASE 122 U/L (39-308); MAGNESIUM 2.4 MG/DL (1.5-2.4); PRO BRAIN NATRIURETIC PEPTIDE 235 PG/ML (0-125)
[2024-07-12 08:05] LABS: ALANINE AMINOTRANSFERASE 7 U/L (12-78)
[2024-07-12 08:10] LABS: C-REACTIVE PROTEIN < 0.05 MG/DL (0.0-0.5)
[2024-07-12] MEDS ORDERED: carbidoba-levodopa 25-100mg tablet PO SCH (08:55)
[2024-07-12] MEDS: carbidoba-levodopa 25-100mg tablet PO ONE (09:39)
--- NOTE | 2024-07-12 09:45 | RADIOLOGY REPORT ---
INDICATION: Knee pain, unable to walk COMPARISON: None TECHNIQUE: CT of the left knee was performed without contrast. Volume transverse images were obtained and reconstructed in multiple planes using bone and soft tissue algorithms. Radiation Dose Information: CT Dose: CTDI volume is 16.8 mGy. Dose-length product is 543 mGy*cm FINDINGS/IMPRESSION: The alignment is normal. Severe medial and patellofemoral degenerative joint space narrowing. There is no fracture, dislocation or aggressive osseous lesion. Moderate to large joint effusion. Vascular atherosclerotic calcifications are present.
[2024-07-12] MEDS ORDERED: magnesium sulf-water 4G/100mL 100 ML IV PRN (11:20)
[2024-07-12] MEDS ORDERED: magnesium Cl slow-release 64mg tablet PO PRN (11:20)
[2024-07-12] MEDS ORDERED: potassium Cl 40MEQ/1/2NS 520ml 520 ML IV PRN (11:20)
[2024-07-12] MEDS ORDERED: potassium Cl 20 mEq SR tablet PO PRN ×2 (11:20)
[2024-07-12] MEDS ORDERED: magnesium sulf-water 2g/50mL 50 ML IV PRN (11:20)
[2024-07-12] MEDS ORDERED: ondansetron/PF 4mg/2ml inj IV PRN ×2 (11:20→15:05)
[2024-07-12] MEDS ORDERED: mag hydrox/Alum hydrox/simeth 30ml oral suspension PO PRN (11:20)
[2024-07-12] MEDS: LIDOcaine 1% W/epiNEPHrine 1:100,000 20ml vial SQ ONE (11:41)
[2024-07-12 14:15] VITALS: BP 143/55; PULSE 65; RESP 16; TEMP 98.4; O2SAT 97
[2024-07-12 14:16] LABS: GLUCOSE,SYNOVIAL FLUID 71 MG/DL; TOTAL PROTEIN,SYNOVIAL FLUID 3.7 GM/DL
--- NOTE | 2024-07-12 14:21 | HISTORY AND PHYSICAL-Residence ---
History & Physical Providers to CC Resident Creating Document: LAYTON THOMASALEKS ~ History of Present Illness Primary Medical Doctor: [place] Reason for Admit\\Complaint: Left knee pain and swelling History of Present Illness This is a 68-year-old gentleman with a past medical history of Parkinson's disease, chronic lymphocytic leukemia, and longstanding bilateral knee osteoarthritis, who presents for evaluation of progressively worsening left knee pain. Approximately two months ago, he sustained a fall in which he landed directly on his left knee. Since then, he has experienced progressively worsening pain, swelling, tenderness, and restricted range of motion in the joint. He describes the knee as extremely tender and painful. He denies any associated fever, or systemic symptoms. He also denies prostatic implant and IV drug use. The patient resides in [facility] and is primarily followed by Eun Carbone NP at [facility]. He previously received intra-articular injections (likely triamcinolone), from his thoracic medicine specialist Dr. Bustillos every six months at [facility]. However, Dr. Bustillos tired after Thanksgiving, and the patient has not received any further injections sense. Regarding his CLL, the patient follows up annually at the [facility] in [place]. The this fissures or focus on monitoring of his WBCs a. He is not currently receiving any active treatment for CLL. I have discussed advance care planning with the patient. The patient has decided to be DNR. Allergies: Coded Allergies: pseudoephedrine (Unverified Adverse Reaction, Mild, URINARY RETENTION, 07/12/24) Home Medications Home Medications Active Losartan Potassium 50 Mg Tablet 25 Mg PO DAILY 30 Days Jardiance (Empagliflozin) 10 Mg Tablet 1 Tab PO DAILY 30 Days Atorvastatin Calcium 20 Mg Tablet 40 Mg PO DAILY 30 Days Fluoxetine HCl 20 Mg Capsule 20 Mg PO DAILY 30 Days Children's Aspirin (Aspirin) 81 Mg Tab.chew 81 Mg PO DAILY@0830 30 Days Metoprolol Succinate 25 Mg Tab.sr.24h 25 Mg PO DAILY 30 Days Reported Carbidopa-Levodopa 25-100 Tab (Carbidopa/Levodopa) 25 Mg-100 Mg Tablet 1 Each PO TID Donepezil Hcl 10 Mg Tab.rapdis 10 Mg PO HS [place] 5/325 MG (Acetaminophen/Hydrocodone Bitart) 5 Mg/325 Mg Tablet 1 Tab PO Q4H PRN Docusate Sodium 100 Mg Caps 1 Cap PO BID Past Medical History Past Medical History Parkinson's disease, hypertension, CLL, bilateral knee arthritis Past Surgical History Surgical History Comment Hydrocele correction, hernia repair Family History Family History: FH: lung cancer MOTHER, , Age: 60 years and older FH: lymphoma, malignant Sister, , Age: 60 years and older Overdose FATHER, , Age: 50's - 60 Past Social History Social History Comment The patient recently moved to [facility] 14 days ago after having experienced homelessness for approximately two years. He currently lives alone. He denies tobacco use, alcohol consumption, or using recreational drugs. However, during the interview, he made a notable statement about having a split personality, describing himself as having a "good haley" and a "bad haley" with a him. He identified himself as "the good haley" - the one currently speaking, who does not engage in substance use. He attributed smoking, alcohol using an other negative behavior behaviors to the "bad haley" with a him. He denied any suicidal ideation but endorsed having some short-term memory difficulties. Despite this statement, he was pleasant, communicative, and cooperative throughout the interview, providing detailed history and demonstrating good insight. The patient reports that he used to ambulate using a walker, but since his fall two months ago, he has been mostly bed-bound due to the left knee pain and decreased mobility. Smoking: Non-Smoker Alcohol Use: None Drug Use: None Lives with: Alone Lives In: Home ROS All Other Systems: Reviewed and Negative ROS As stated above in the HPI, otherwise all systems are reviewed and negative. Exam Vitals: Vital Signs Date Time Temp Pulse Resp B/P (MAP) Pulse Ox O2 Delivery O2 Flow Rate FiO2 07/12/24 13:38 66 16 138/82 (100) 98 07/12/24 07:35 98.0 0 General Appearance: Patient appears alert, cooperative, and answers questions appropriately, though with bradyphrenic. Mildly Reduced facial expression, low volume speech, slightly monotonic HEENT: Atraumatic, normocephalic, ALEJANDRO, EOMI. Normal oropharynx, moist oral mucosa. Neck: Trachea midline. Supple, normal ROM. No JVD, bruit, lymphadenopathy or masses, or other lesions. Respiratory: Chest wall is symmetric and without deformity. No signs of respiratory distress. Equal breath sounds bilaterally. No wheeze, rub, Rales or crackles. Cardiac: RRR, no murmur, rub or gallop. Normal S1 and S2. GI: No tenderness. Abdomen symmetric, nondistended, soft, normal bowel sounds x4 quadrant normoactive. No guarding, no rebound or rigidity. No hepatosplenomegaly. No masses, no bruit, no flank pain bilaterally. Extremities: Swollen, tender, and painful left knee. Extremely limited range of motion. No redness or warmth Resting tremor noted in the upper extremities, decreases with a voluntary movement I did not appreciate cogwheel rigidity. Slow initiation and execution of voluntary movements. Skin: Intact, dry, warm, no rashes or petechia. Neuro: Speech is clear, alert and oriented x4. No sensory or motor deficit, DTRs normal. Cranial nerves II to XII intact. Psych: Normal affect, good eye contact, no apparent hallucination, monotonic speech Diagnostic Data Last Recorded Lab Results: 07/12/24 0722 07/12/24 0722 Diagnostic Data: Laboratory Tests Test 07/12/24 07:22 Prothrombin Time 10.4 SECONDS (9.0-12.0) INR International Normalized Ratio 1.0 INR Activated Partial Thromboplast Time 26 SECONDS (22-32) Coagulation Comments Advance Care Planning Advanced Care plannin - 30 Minutes Additional Plan Assessment and plan: This is a 68-year-old gentleman with a past medical history of Parkinson's disease, chronic lymphocytic leukemia, and longstanding bilateral knee osteoarthritis, who presents for evaluation of progressively worsening left knee pain. Left knee pain and swelling: Inflammatory (infectious vs non-infectious) vs noninflammatory Underlying bilateral knees osteoarthritis Swelling, tenderness, and pain with a extremely limited range of motion as well as radiographic evidence of joint effusion, necessitated arthrocentesis for synovial fluid analysis. Performed by ER physician, We will follow the result and proceed accordingly CT scan reveals: - Severe medial and patellofemoral degenerative joint space narrowing. - There is no fracture, dislocation or aggressive osseous lesion. - Moderate to large joint effusion. Pain management; Tylenol, morphine, Dilaudid as needed IVF: NS 100 mL/hour Hypertension: Continue losartan and metoprolol Parkinson's disease: Continue home medications i.e. Sinemet and donepezil Anxiety/depression: Continue fluoxetine Code status: DNR DVT prophylaxis: Lovenox 40 mg subQ daily [facility] Internal Medicine Resident Date of Service: July 12, 2024 Billing Provider: ROBI GUERRA MD,LAYTON, RES July 12, 2024 14:21
[2024-07-12 14:48] LABS: APPEARANCE,SYNOVIAL FLUID CLEAR; COLOR,SYNOVIAL FLUID YELLOW; LYMPHOCYTES,SYNOVIAL FLUID 42 % (0-75); MONOCYTES,SYNOVIAL FLUID 56 % (0-0); SYN RBC 300 /CU MM (0); SYN WBC 176 /CU MM (0-200); SYNOVIAL LINING CELLS MODERATE
[2024-07-12 14:49] LABS: NEUTROPHILS,SYNOVIAL FLUID 2 % (0-25); SYNOVIAL FLUID CRYSTALS QT NO CRYSTALS SEEN
[2024-07-12] MEDS ORDERED: HYDROmorphone/PF 0.2 MG/ML SYRINGE IV PRN (15:05)
[2024-07-12] MEDS ORDERED: morphine 2 MG/ML inj. syringe IV PRN (15:05)
[2024-07-12] MEDS ORDERED: acetaminophen 325mg tablet PO PRN (15:05)
[2024-07-12] MEDS: ceFAZolin/D5W- 1GM premix 50 ML IV ONE (15:49)
[2024-07-12] MEDS: normal saline 1000ml 1,000 ML IV SCH (15:50)
[2024-07-12 15:56] LABS: URIC ACID 3.6 MG/DL (3.5-7.2)
[2024-07-12 17:23] VITALS: RESP 16
[2024-07-12] MEDS ORDERED: HYDROcodone/acetaminophen 5mg/325mg tablet PO PRN (19:50)
[2024-07-12] MEDS: K and/or MAG REPLACEMENT MC SCH (20:00)
[2024-07-12] MEDS: enoxaparin 40mg/0.4ml syringe SUBCUT SCH (21:08)
[2024-07-12] MEDS: Melatonin 3mg tablet PO ONE (21:09)
[2024-07-12] MEDS: carbidoba-levodopa 25-100mg tablet PO SCH (21:09)
[2024-07-12] MEDS: FLUoxetine 20mg capsule PO SCH (21:09)
[2024-07-12] MEDS: docusate sod 100mg capsule PO SCH (21:09)
[2024-07-12] MEDS: acetaminophen 325mg tablet PO STA (21:09)
[2024-07-12] MEDS: donepezil 5mg tablet PO SCH (21:10)
[2024-07-12 22:00] VITALS: BP 142/62; PULSE 74; RESP 16; TEMP 98.3; O2SAT 95
[2024-07-13] VITALS (7 sets, daily range): BP systolic 106–196; BP diastolic 55–77; PULSE 65–93; RESP 16–17; TEMP 97.1–98.9; O2SAT 95–97
[2024-07-13] MEDS: aspirin 81mg tab.chew PO SCH (10:03)
[2024-07-13] MEDS: metoprolol succinate 25mg (24-HOUR) SR. Tablet PO SCH (10:04)
[2024-07-13] MEDS: losartan 25mg tablet PO SCH (10:04)
[2024-07-13] MEDS: atorvastatin 20mg tablet PO SCH (10:04)
[2024-07-13] MEDS: EMPAGLIFLOZIN 10 MG TABLET PO SCH (10:04)
[2024-07-13] MEDS: magnesium hydroxide 30ml (MOM) UD suspension PO PRN (10:05)
[2024-07-13] MEDS: acetaminophen 325mg tablet PO PRN (10:25)
--- NOTE | 2024-07-13 14:40 | PROGRESS NOTE- Residence ---
Progress Note - Resident Providers to CC Resident Creating Document: LAYTON HUNT RES ~ Antibiotic Timeout Antibiotic Ordered?: Yes Subjective Patient was seen and examined at bedside. His pain is controlled with current management. Range of motion in his left knee extremely restricted, unable to walk on his left leg. Discussed with him about orthopedic consultation, needs for physical therapy, and possible rehab placement. Objective Vital Signs Date Time Temp Pulse Resp B/P (MAP) Pulse Ox O2 Delivery O2 Flow Rate FiO2 07/13/24 10:04 65 07/13/24 10:00 98.4 17 127/70 (89) 95 Room Air 07/13/24 08:00 0.0 General Appearance: Patient appears alert, cooperative, and answers questions appropriately, though with bradyphrenic. Mildly Reduced facial expression, low volume speech, slightly monotonic Respiratory: Chest wall is symmetric and without deformity. No signs of respiratory distress. Equal breath sounds bilaterally. No wheeze, rub, Rales or crackles. Cardiac: RRR, no murmur, rub or gallop. Normal S1 and S2. GI: No tenderness. Abdomen symmetric, nondistended, soft, normal bowel sounds x4 quadrant normoactive. No guarding, no rebound or rigidity. No hepatosplenomegaly. No masses, no bruit, no flank pain bilaterally. Extremities: Swollen, tender, and painful left knee. Extremely limited range of motion. No redness or warmth Resting tremor noted in the upper extremities, decreases with a voluntary movement I did not appreciate cogwheel rigidity. Slow initiation and execution of voluntary movements. Neuro: Speech is clear, alert and oriented x4. No sensory or motor deficit, DTRs normal. Cranial nerves II to XII intact. Psych: Normal affect, good eye contact, no apparent hallucination, monotonic speech Result Diagram: 07/12/24 0722 07/12/24 0722 Coagulation Studies Laboratory Tests Test 07/12/24 07:22 Prothrombin Time 10.4 SECONDS (9.0-12.0) INR International Normalized Ratio 1.0 INR Activated Partial Thromboplast Time 26 SECONDS (22-32) Coagulation Comments Advance Care Planning Advanced Care plannin - 30 Minutes Assessment Assessment This is a 68-year-old gentleman with a past medical history of Parkinson's disease, chronic lymphocytic leukemia, and longstanding bilateral knee osteoarthritis, who presents for evaluation of progressively worsening left knee pain. Plan Plan Left knee pain and swelling: Inflammatory (infectious vs non-infectious) vs noninflammatory Underlying bilateral knees osteoarthritis Swelling, tenderness, and pain with a extremely limited range of motion as well as radiographic evidence of joint effusion, necessitated arthrocentesis for synovial fluid analysis. Performed by ER physician, We will follow the result and proceed accordingly CT scan reveals: - Severe medial and patellofemoral degenerative joint space narrowing. - There is no fracture, dislocation or aggressive osseous lesion. - Moderate to large joint effusion. Pain management; Tylenol, morphine, Dilaudid as needed IVF: NS 100 mL/hour July 13, 2024: Pain controlled with current medication Synovial fluid analysis indicative of noninflammatory arthritis, likely severe advanced osteoarthritis Knee brace ordered MRI left knee also ordered Hypertension: Continue losartan and metoprolol Parkinson's disease: Continue home medications i.e. Sinemet and donepezil Anxiety/depression: Continue fluoxetine Code status: DNR DVT prophylaxis: Lovenox 40 mg subQ daily [facility] Resident Date of Service: July 13, 2024 Billing Provider: ROBI GUERRA MD, SHAMS, RES July 13, 2024 14:40
--- NOTE | 2024-07-13 19:03 | CONSULTATION REPORT ---
History of Present Illness Providers to CC ~ Reason for Admit\Admit Dx: Left knee pain and swelling Refering MD: Dr De La Cruz History of Present Illness The patient is a 68-year-old man who presented with left knee swelling and pain and difficulty bearing weight. This happened over a period of day or so. He describes no particular injury and states this has not occurred him in the past. He does respond that when he was younger he was in the [employer] and did a lot of running and jumping and has a knee pain ever since because of what he calls bowleggedness. He has not had any surgeries on the left knee. The knee had been aspirated upon admission and is negative for infection thus far Allergies: Coded Allergies: pseudoephedrine (Unverified Adverse Reaction, Mild, URINARY RETENTION, 07/12/24) Home Medications Home Medications Active Losartan Potassium 50 Mg Tablet 25 Mg PO DAILY 30 Days Jardiance (Empagliflozin) 10 Mg Tablet 1 Tab PO DAILY 30 Days Atorvastatin Calcium 20 Mg Tablet 40 Mg PO DAILY 30 Days Fluoxetine HCl 20 Mg Capsule 20 Mg PO DAILY 30 Days Children's Aspirin (Aspirin) 81 Mg Tab.chew 81 Mg PO DAILY@0830 30 Days Metoprolol Succinate 25 Mg Tab.sr.24h 25 Mg PO DAILY 30 Days Reported Carbidopa-Levodopa 25-100 Tab (Carbidopa/Levodopa) 25 Mg-100 Mg Tablet 1 Each PO TID Donepezil Hcl 10 Mg Tab.rapdis 10 Mg PO HS Largo 5/325 MG (Acetaminophen/Hydrocodone Bitart) 5 Mg/325 Mg Tablet 1 Tab PO Q4H PRN Docusate Sodium 100 Mg Caps 1 Cap PO BID Past Family History Family History: FH: lung cancer MOTHER, , Age: 60 years and older FH: lymphoma, malignant Sister, , Age: 60 years and older Overdose FATHER, , Age: 50's - 60 Physical Exam Last Vital Signs Recorded: Temperature: 98.4, Source: Oral, Heart Rate: 65, Respiratory Rate: 17, BP: 133/70, Pulse Oximetry: 95, Weight: 71.000 General Appearance: alert, no apparent distress Extremities And he was quite normal in appearance. He has got no irritability no erythema no swelling. There was no gross instability. Essentially a normal knee exam MRI and CT were done and he is just show some medial arthritis fairly significant degree Results Diagram Lab Result Diagram: 07/12/24 0722 07/12/24 0722 Assessment/Plan Problems/Diagnosis: (1) Effusion of knee Additional Plan He was gotten a arthritis and seems to have had a flare up of inflammation in that area but it seems to be resolving now. I do not believe he has any infection and no treatment is indicated at this time other than a knee wrap or sleeve for symptomatic treatment. However he should be referred to a knee replacement surgeon for possible evaluation for knee replacement. Problem Qualifiers (1) Effusion of knee: Qualified Codes: M25.462 - Effusion, left knee JESSICA ARZOLA Jr., MD July 13, 2024 19:03
--- NOTE | 2024-07-13 19:21 | RADIOLOGY REPORT ---
EXAM: MR MRI LOWER EXTREMITY LEFT HISTORY: swollen, tender left knee COMPARISON: CT CT LOWER EXTREMITY on DOS: 07/12/24 TECHNIQUE: Multiplanar, multisequence imaging of the left knee was performed without contrast FINDINGS: MEDIAL COMPARTMENT: Complete macerated tearing of the medial meniscus with medial meniscal extrusion. Apposing full-thickness cartilage loss of the medial weight-bearing compartment with [id number] c ontact at the mesial aspect. No significant opposing subchondral edema or cystic change LATERAL COMPARTMENT: Intact lateral meniscus. No focal chondrosis or subchondral edema. PATELLOFEMORAL COMPARTMENT: No focal chondrosis or subchondral edema. CRUCIATE LIGAMENTS: Limited evaluation of the cruciate ligaments secondary to patient motion. MEDIAL SUPPORTING STRUCTURES: Thickening of the proximal superficial medial collateral ligament which appears grossly intact. LATERAL SUPPORTING STRUCTURES: Intact iliotibial band, lateral capsular ligament, fibular collateral ligament, popliteus, and biceps femoris tendons EXTENSOR MECHANISM: Intact JOINT SPACE/FLUID: Medium-sized knee joint effusion. BONES: Bone marrow edema of the anterior aspect of the proximal tibia without discrete fracture plane Bone marrow edema extends to the subchondral bone plate of the lateral tibial plateau. MUSCLES: Minimal insinuating intermuscular fascial edema of the proximal posterior calf. NEUROVASCULAR: Unremarkable OTHER: 1st M subcutaneous tissue edema the enteric distal thigh to knee IMPRESSION: 1. Suspected bone contusion of the lateral proximal tibia without discrete fracture plane. 2. Complex macerated tearing of the medial meniscus. 3. Poor evaluation of the cruciate ligaments and can not assess for integrity. 4. Medium-size knee joint effusion. 5. Severe degenerative change of the medial weight-bearing compartment.
[2024-07-14 05:07] LABS: MAGNESIUM 2.2 MG/DL (1.5-2.4)
[2024-07-14 06:00] VITALS: BP 160/67; PULSE 66; RESP 15; TEMP 98.7; O2SAT 94
[2024-07-14 07:50] LABS: BASOPHILS % (AUTO) 0.2 % (0-1); EOSINOPHILS % (AUTO) 0.4 % (0-6); HEMATOCRIT 38.4 % (42.0-52.0); HEMOGLOBIN 13.1 g/dl (14.0-17.9); LYMPHOCYTES # (AUTO) 2.9 X10'3 (1.1-4.8); LYMPHOCYTES % (AUTO) 32.3 % (21-51); MEAN CORPUSCULAR HEMOGLOBIN 32.8 PG (27.0-31.0); MEAN CORPUSCULAR VOLUME 96.4 FL (78-98); MEAN PLATELET VOLUME 7.9 FL (7.4-10.4); MONOCYTES # (AUTO) 0.6 X10'3 (0-0.9); MONOCYTES % (AUTO) 6.2 % (2-12); NEUTROPHILS # (AUTO) 5.5 X10'3 (1.8-7.7); NEUTROPHILS % (AUTO) 60.9 % (42-75); PLATELET COUNT 178 X10'3 (140-440); RED BLOOD COUNT 3.98 X10'6 (4.70-6.10); RED CELL DISTRIBUTION WIDTH 13.5 % (11.5-14.5)
[2024-07-14 07:58] LABS: ALANINE AMINOTRANSFERASE 18 U/L (12-78); ALBUMIN 3.4 G/DL (3.4-5.0); ALBUMIN/GLOBULIN RATIO 1.5 (1.1-1.5); ALKALINE PHOSPHATASE 67 IU/L (46-116); ANION GAP 9 (8-16); ASPARTATE AMINO TRANSFERASE 18 U/L (10-37); BILIRUBIN,TOTAL 0.6 MG/DL (0.1-1.0); BLOOD UREA NITROGEN 13 MG/DL (7-18); BUN/CREATININE RATIO 16.7 (10.0-20.0); CALCIUM 8.5 MG/DL (8.5-10.1); CHLORIDE 109 MMOL/L (99-107); CREATININE 0.78 MG/DL (0.60-1.10); GLUCOSE 95 MG/DL (70-104); POTASSIUM 3.6 MMOL/L (3.5-5.1); SODIUM 143 MMOL/L (135-145); TOTAL CARBON DIOXIDE 24.9 MMOL/L (24-32); TOTAL PROTEIN 5.6 G/DL (6.4-8.2); eCRCL 84 ML/MIN; eGFR > 90 ML/MIN
[2024-07-14 08:00] VITALS: RESP 15; O2SAT 94
[2024-07-14] MEDS: acetaminophen 325mg tablet PO PRN (09:10)
[2024-07-14 10:00] VITALS: BP 96/45; PULSE 70; RESP 15; TEMP 97.7; O2SAT 96
[2024-07-14 18:00] VITALS: BP 121/88; PULSE 92; RESP 19; TEMP 98.1; O2SAT 96
--- NOTE | 2024-07-14 18:39 | PROGRESS NOTE- Residence ---
Progress Note - Resident Providers to CC Resident Creating Document: LAYTON HUNT RES ~ Antibiotic Timeout Antibiotic Ordered?: No Subjective Patient was seen and examined at bedside. His pain is controlled with current management. Range of motion in his left knee extremely restricted, unable to walk on his left leg. Objective Vital Signs Date Time Temp Pulse Resp B/P (MAP) Pulse Ox O2 Delivery O2 Flow Rate FiO2 07/14/24 10:00 97.7 70 15 96/45 (62) 96 Room Air 07/13/24 08:00 0.0 General Appearance: Patient appears alert, cooperative, and answers questions appropriately, though with bradyphrenic. Mildly Reduced facial expression, low volume speech, slightly monotonic Respiratory: Chest wall is symmetric and without deformity. No signs of respiratory distress. Equal breath sounds bilaterally. No wheeze, rub, Rales or crackles. Cardiac: RRR, no murmur, rub or gallop. Normal S1 and S2. GI: No tenderness. Abdomen symmetric, nondistended, soft, normal bowel sounds x4 quadrant normoactive. No guarding, no rebound or rigidity. No hepatosplenomegaly. No masses, no bruit, no flank pain bilaterally. Extremities: Swollen, tender, and painful left knee. Extremely limited range of motion. No redness or warmth Resting tremor noted in the upper extremities, decreases with a voluntary movement I did not appreciate cogwheel rigidity. Slow initiation and execution of voluntary movements. Neuro: Speech is clear, alert and oriented x4. No sensory or motor deficit, DTRs normal. Cranial nerves II to XII intact. Psych: Normal affect, good eye contact, no apparent hallucination, monotonic speech Result Diagram: 07/14/24 0431 07/14/24 0431 Coagulation Studies Laboratory Tests Test 07/12/24 07:22 Prothrombin Time 10.4 SECONDS (9.0-12.0) INR International Normalized Ratio 1.0 INR Activated Partial Thromboplast Time 26 SECONDS (22-32) Coagulation Comments Advance Care Planning Advanced Care plannin - 30 Minutes Assessment Assessment This is a 68-year-old gentleman with a past medical history of Parkinson's disease, chronic lymphocytic leukemia, and longstanding bilateral knee osteoarthritis, who presents for evaluation of progressively worsening left knee pain. Plan Plan Left knee pain and swelling: Inflammatory (infectious vs non-infectious) vs noninflammatory Underlying bilateral knees osteoarthritis Swelling, tenderness, and pain with a extremely limited range of motion as well as radiographic evidence of joint effusion, necessitated arthrocentesis for synovial fluid analysis. Performed by ER physician, We will follow the result and proceed accordingly CT scan reveals: - Severe medial and patellofemoral degenerative joint space narrowing. - There is no fracture, dislocation or aggressive osseous lesion. - Moderate to large joint effusion. Pain management; Tylenol, morphine, Dilaudid as needed IVF: NS 100 mL/hour July 13, 2024: Pain controlled with current medication Synovial fluid analysis indicative of noninflammatory arthritis, likely severe advanced osteoarthritis Knee brace ordered MRI left knee also ordered July 14, 2024: Pain controlled with current management. Knee brace applied. MRI was significant for a medial meniscal tear, joint effusion, and severe degenerative changes. Dr. Ching evaluated the patient and recommended referral to a knee replacement surgeon. The patient was also evaluated by the Physical therapy team, who recommended rehabilitation placement. energy manager has been informed and we will explore options for placement. Patient agrees. Hypertension: Continue losartan and metoprolol Parkinson's disease: Continue home medications i.e. Sinemet and donepezil Anxiety/depression: Continue fluoxetine Code status: DNR DVT prophylaxis: Lovenox 40 mg subQ daily [facility] Resident Date of Service: July 14, 2024 Billing Provider: ROBI GUERRA MD, SHAMS, RES July 14, 2024 18:39
[2024-07-14 20:00] VITALS: RESP 19; O2SAT 96
[2024-07-14 22:00] VITALS: BP 162/74; PULSE 63; RESP 16; TEMP 98.9; O2SAT 95
[2024-07-15 05:10] LABS: BASOPHILS % (AUTO) 0.1 % (0-1); EOSINOPHILS # (AUTO) 0.1 X10'3 (0-0.9); EOSINOPHILS % (AUTO) 0.7 % (0-6); HEMATOCRIT 39.3 % (42.0-52.0); HEMOGLOBIN 13.6 g/dl (14.0-17.9); LYMPHOCYTES # (AUTO) 3.6 X10'3 (1.1-4.8); MEAN CORPUSCULAR HEMOGLOBIN 32.8 PG (27.0-31.0); MEAN CORPUSCULAR HGB CONC 34.5 g/dL (33.0-36.5); MEAN PLATELET VOLUME 7.3 FL (7.4-10.4); MONOCYTES # (AUTO) 0.6 X10'3 (0-0.9); MONOCYTES % (AUTO) 7.8 % (2-12); NEUTROPHILS # (AUTO) 2.9 X10'3 (1.8-7.7); NEUTROPHILS % (AUTO) 40.4 % (42-75); PLATELET COUNT 177 X10'3 (140-440); RED BLOOD COUNT 4.14 X10'6 (4.70-6.10); RED CELL DISTRIBUTION WIDTH 13.6 % (11.5-14.5); WHITE BLOOD COUNT 7.1 X10'3 (4.5-11.0)
[2024-07-15 06:00] VITALS: BP 150/63; PULSE 64; RESP 16; TEMP 98; O2SAT 97
[2024-07-15 08:00] VITALS: RESP 16; O2SAT 97
[2024-07-15] MEDS: normal saline 1000ml 1,000 ML IV ONE (09:17)
[2024-07-15 10:00] VITALS: BP 81/43; PULSE 77; RESP 16; TEMP 97.4; O2SAT 94
[2024-07-15 18:00] VITALS: BP 104/58; PULSE 61; RESP 20; TEMP 98.4; O2SAT 95
--- NOTE | 2024-07-15 19:14 | DISCHARGE SUMMARY-Residence ---
Discharge Summary Providers to CC Resident Creating Document: LAYTON THOMAS ALEKS ~ Discharge Summary Admission Diagnosis: Knee arthritis/effusion Hospital Course DATE OF ADMISSION: July 12, 2024 DATE OF DISCHARGE: July 15, 2024 Discharge Diagnosis\Comment: Advanced degenerative joint disease of the left knee Septic arthritis ruled out Hypertension Parkinson's disease Anxiety/depression Operations\Procedures: None Consultants: Dr. Ching Complications: None Condition on DC: Stable for transfer Discharge Summary: History of present illness: This is a 68-year-old gentleman with a past medical history of Parkinson's disease, chronic lymphocytic leukemia, and longstanding bilateral knee osteoarthritis, who presents for evaluation of progressively worsening left knee pain. Approximately two months ago, he sustained a fall in which he landed directly on his left knee. Since then, he has experienced progressively worsening pain, swelling, tenderness, and restricted range of motion in the joint. He describes the knee as extremely tender and painful. He denies any associated fever, or systemic symptoms. He also denies prostatic implant and IV drug use. The patient resides in [facility] and is primarily followed by Eun Carbone NP at [facility]. He previously received intra-articular injections (likely triamcinolone), from his correctional casework specialist Dr. Bsutillos every six months at [facility]. However, Dr. Bustillos tired after Thanksgiving, and the patient has not received any further injections sense. Regarding his CLL, the patient follows up annually at the [facility] in [place]. The this fissures or focus on monitoring of his WBCs a. He is not currently receiving any active treatment for CLL. I have discussed advance care planning with the patient. The patient has decided to be DNR. Hospital course: Patient was presented with a left knee pain and swelling. CT scan revealed Severe medial and patellofemoral degenerative joint space narrowing., In order to ruled out septic arthritis, and Moderate to large joint effusion. In order to rule out septic arthritis, a thoracentesis was performed, synovial fluid analysis done, and septic arthritis was ruled out. Pain was managed with Tylenol, morphine, and Winfield as needed. MRI also done, which showed medial meniscal tear. On-call orthopedic surgeon, Dr. Ching was consulted who evaluated the patient and recommended knee replacement surgery. Additionally, patient also had orthostatic hypotension, more likely due to ongoing Parkinson's disease. He was hydrated with normal saline. Discharge course: Pain is controlled with current regime. Due to his social circumstances, patient was referred to residential facility for physical and occupational therapy while waiting for knee replacement surgery. Discharge medications: Mild pain: Acetaminophen 650 mg q.6h PRN Moderate pain Winfield five q.6h PRN Severe pain: W[place]ield 10 q.6h PRN Aspirin 81 mg p.o. daily Metoprolol succinate 25 mg p.o. daily Losartan 25 mg p.o. daily Jardiance 10 mg p.o. daily Atorvastatin 40 mg p.o. daily Donepezil 10 mg p.o. daily Sinemet 25/100 mg one tablet 3 times daily Fluoxetine 20 mg p.o. daily Discharge physical exam: Vital Signs Date Time Temp Pulse Resp B/P (MAP) Pulse Ox O2 Delivery O2 Flow Rate FiO2 07/15/24 10:00 97.4 77 16 81/43 (56) 94 Room Air 07/13/24 08:00 0.0 General Appearance: Patient appears alert, cooperative, and answers questions appropriately, though with bradyphrenic. Mildly Reduced facial expression, low volume speech, slightly monotonic Respiratory: Chest wall is symmetric and without deformity. No signs of respiratory distress. Equal breath sounds bilaterally. No wheeze, rub, Rales or crackles. Cardiac: RRR, no murmur, rub or gallop. Normal S1 and S2. GI: No tenderness. Abdomen symmetric, nondistended, soft, normal bowel sounds x4 quadrant normoactive. No guarding, no rebound or rigidity. No hepatosplenomegaly. No masses, no bruit, no flank pain bilaterally. Extremities: Swollen, tender, and painful left knee. Extremely limited range of motion. No redness or warmth Resting tremor noted in the upper extremities, decreases with a voluntary movement I did not appreciate cogwheel rigidity. Slow initiation and execution of voluntary movements. Neuro: Speech is clear, alert and oriented x4. No sensory or motor deficit, DTRs normal. Cranial nerves II to XII intact. Psych: Normal affect, good eye contact, no apparent hallucination, monotonic speech Imaging studies: MRI performed on July 13, 2024: IMPRESSION: 1. Suspected bone contusion of the lateral proximal tibia without discrete fracture plane. 2. Complex macerated tearing of the medial meniscus. 3. Poor evaluation of the cruciate ligaments and can not assess for integrity. 4. Medium-size knee joint effusion. 5. Severe degenerative change of the medial weight-bearing compartment. CT scan left knee performed on July 12, 2024: FINDINGS/IMPRESSION: The alignment is normal. Severe medial and patellofemoral degenerative joint space narrowing. There is no fracture, dislocation or aggressive osseous lesion. Moderate to large joint effusion. Vascular atherosclerotic calcifications are present. *Problems/Diagnosis: (1) Effusion of knee Status: Acute (2) Degenerative joint disease Total Time Spent on D/C: Up to 30 Minutes Date of Service: July 15, 2024 Billing Provider: ROBI GUERRA MD Problem Qualifiers (1) Effusion of knee: Laterality: left Qualified Codes: M25.462 - Effusion, left knee LAYTON THOMAS, RES July 15, 2024 19:14
== END 2024-07-15 20:19 | DRG 554 ==
LOC: ER 06:43 → ED HOLD 11:20 → SUR 3N 14:10 → ORTHO 4S 16:56
PROVIDERS: ADMIT Family Medicine; ATTEND Family Medicine
PROC: 0S9D3ZZ Drainage of Left Knee Joint, Percutaneous Approach (ICD-10-PCS; principal; 2024-07-12)
DX: M17.0 Bilateral primary osteoarthritis of knee (principal); G20.A1 Parkinson's disease without dyskinesia, without mention of fluctuations; Z66 Do not resuscitate; F41.9 Anxiety disorder, unspecified; F32.A Depression, unspecified; Z20.822 Contact with and (suspected) exposure to COVID-19; I10 Essential (primary) hypertension; M25.462 Effusion, left knee; I95.89 Other hypotension; F02.80 Dementia in other diseases classified elsewhere, unspecified severity, without behavioral disturbance, psychotic disturbance, mood disturbance, and anxiety; Z88.8 Allergy status to other drugs, medicaments and biological substances; Z79.82 Long term (current) use of aspirin; Z79.899 Other long term (current) drug therapy
CPT/HCPCS: 20610; 36415; 73700; 73721; 80053; 82550; 82945; 83735; 83880; 84157; 84484; 84550; 85025; 85610; 85651; 85730; 86140; 87070; 87075; 87081; 87811; 89051; 89060; 93005; 96361; 96365; 96375; 97110; 97116; 97162; 97530; 99285; A6258; A6590; G0378; J0690; J1650; J7030

== ENCOUNTER 2024-07-18 06:18 | Inpatient (IN) | payer OTHER, MEDICARE ==
[~2024-07-18] VITALS: Ht 170.2 cm; Wt 71.8 kg
--- NOTE | 2024-07-18 06:28 | ELECTROCARDIOGRAPH REPORT ---
[facility] Test Date: 2024-07-18 Test Time: 06:25:19 Pat Name: ADRIANA KIDD Department: [facility]- Patient ID: [facility]-[id number] Room: [place] [address] Gender: M [employer] Offbearer: : 1955 Requested By: SANTIAGO BAEZA Order Number: [id number] Reading MD: Dr. Srikanth Muniz Measurements Intervals [place] Rate: 88 P: 40 NH: 141 QRS: -82 QRSD: 102 T: 27 QT: 371 QTc: 449 Interpretive Statements Sinus rhythm, sinus arrythmia Inferior infarct, old Electronically Signed On 07-18-2024 18:51:[address] Srikanth Muniz Please click the below link to view image of tracing.
--- NOTE | 2024-07-18 06:47 | Physician Documentation ---
History of Present Illness ~ Chief Complaint: Chest Pain Stated Complaint: CHEST PAIN Time Seen by MD: 06:38 OK to notify your PCP?: Yes Primary Medical Doctor: Dr De La Cruz HPI 68-year-old male presents to the emergency department by ambulance for complaint of left-sided chest pain that started at 5:00 a.m. this morning, patient states he has a history of chest pain in the past however denies history of having a heart attack, he was recently admitted to the hospital for knee pain. Patient was given aspirin by the paramedics. Timing/Duration: hours Quality/Severity: moderate Pain Location: left chest Radiation: no radiation Activities at Onset: none Prior Cardiac Workup: other Prior CP/Risk Factors: similar pain in past, angina Medication Reconciliation Allergies: Coded Allergies: pseudoephedrine (Unverified Adverse Reaction, Mild, URINARY RETENTION, 07/12/24) Scheduled Aspirin (Children's Aspirin), 81 MG PO DAILY@0830 Atorvastatin Calcium (Atorvastatin Calcium), 40 MG PO DAILY Carbidopa/Levodopa (Carbidopa-Levodopa 25-100 Tab), 1 EACH PO TID, (Reported) Docusate Sodium (Docusate Sodium), 1 CAP PO BID, (Reported) Donepezil Hcl (Donepezil Hcl), 10 MG PO HS, (Reported) Empagliflozin (Jardiance), 1 TAB PO DAILY Fluoxetine HCl (Fluoxetine HCl), 20 MG PO DAILY Losartan Potassium (Losartan Potassium), 25 MG PO DAILY Metoprolol Succinate (Metoprolol Succinate), 25 MG PO DAILY Scheduled PRN Hydrocodone Bit/Acetaminophen 5/325 MG ([place] 5/325 MG), 1 TAB PO Q4H PRN for moderate or severe pain, (Reported) Past Medical History Past Medical History: Dementia, Parkinson's Disease, Chronic Pain, *PSYCH* Past Surgical History: abdominal surgery Patient History: FH: lung cancer MOTHER, , Age: 60 years and older FH: lymphoma, malignant Sister, , Age: 60 years and older Overdose FATHER, , Age: 50's - 60 Alcohol Use: None Drug Use: none Lives with: Alone Lives In: Home Review of Systems All Other Systems at this time: Reviewed and Negative Constitutional: Reports: see HPI; Denies: chills, fever, weakness Eyes: Reports: no symptoms reported ENT: Reports: no symptoms reported Respiratory: Reports: no symptoms reported Cardiovascular: Reports: chest pain Physical Exam Vital Signs: RN Vital Signs have been reviewed: Yes, Heart Rate: 74, Respiratory Rate: 18, BP: 131/80, Pulse Oximetry: 95, Weight: 71.820 Oxygen Flow Rate: 0 Pulse Oximetry Reflects: adequate oxygenation General Appearance: alert, mild distress EENT: normal ENT inspection, moist mucous membranes Neck: normal inspection, full range of motion, supple Respiratory: lungs clear, normal breath sounds, no respiratory distress Chest: no accessory muscle use; No: retractions Cardiovascular: normal peripheral pulses, regular rate, rhythm, no edema, no JVD Gastrointestinal: normal palpation, non-tender, bowels sounds present Extremities: normal inspection, no calf tenderness Psychiatric: depressed affect; No: normal mood/affect Progress Results/Orders Results/Orders Orders - SANTIAGO BAEZA DO Chest,Single View (07/18/24 06:22) Monitor (07/18/24 06:22) Saline Lock (07/18/24 06:22) Oxygen (07/18/24 06:22) Hs Troponin I W Calculations (07/18/24 09:22) Completed Orders - SANTIAGO BAEZA DO Chest,Single View (07/18/24 06:22) Cbc/Diff (07/18/24 06:22) PBNP (07/18/24 06:22) Electrocardiogram (07/18/24 06:22) CMP (07/18/24 06:22) Hs Troponin I W Calculations (07/18/24 06:22) Hs Troponin I W Calculations (07/18/24 08:22) Carbidopa-Levodopa Tablet (Sinemet 25-10 (07/18/24 07:20) Medications Received in ER Medications (Trade) Dose Ordered Sig/Jani Route PRN Reason Start Time Stop Time Status Last Admin Dose Admin (Sinemet 25-100MG tablet) 1 tab NOW ONCE PO 07/18/24 07:20 07/18/24 07:26 DC 07/18/24 07:27 1 TAB Vital Signs 07/18/24 07/18/24 07/18/24 07/18/24 06:19 06:30 07:00 08:00 Pulse 74 100 93 Resp 18 17 18 18 B/P (MAP) 131/80 125/83 (97) 105/62 (76) Pulse Ox 95 95 95 O2 Flow Rate 0 0 0 07/18/24 09:01 Pulse 80 Resp 16 B/P (MAP) 98/59 (72) Pulse Ox 95 O2 Flow Rate 0 Laboratory Tests Test 07/18/24 06:28 07/18/24 08:05 White Blood Count 9.5 Red Blood Count 4.64 L Hemoglobin 14.8 Hematocrit 44.3 Mean Corpuscular Volume 95.5 Mean Corpuscular Hemoglobin 31.8 H Mean Corpuscular Hemoglobin Concent 33.3 Red Cell Distribution Width 13.4 Platelet Count 220 Mean Platelet Volume 7.6 Neutrophils (%) (Auto) 43.7 Lymphocytes (%) (Auto) 48.9 Monocytes (%) (Auto) 6.9 Eosinophils (%) (Auto) 0.4 Basophils (%) (Auto) 0.1 Neutrophils # (Auto) 4.2 Lymphocytes # (Auto) 4.6 Monocytes # (Auto) 0.7 Eosinophils # (Auto) 0.0 Basophils # (Auto) 0.0 CBC Comment Sodium Level 142 Potassium Level 4.3 Chloride Level 107 Carbon Dioxide Level 26.0 Anion Gap 9 Blood Urea Nitrogen 16 Creatinine 0.67 Estimated GFR/1.73 m2 > 90 BUN/Creatinine Ratio 23.9 H Glucose Level 92 Calcium Level 8.9 Total Bilirubin 0.6 Aspartate Amino Transf (AST/SGOT) 32 Alanine Aminotransferase (ALT/SGPT) 38 Alkaline Phosphatase 80 Troponin I High Sensitivity 5 5 Pro-B-Type Natriuretic Peptide 180 H Total Protein 6.4 Albumin 3.6 Globulin 2.8 Albumin/Globulin Ratio 1.3 Chemistry Comments Troponin I High Sens Percent Delta 0 Troponin I Hi Sens Absolute Change 0 EKG/XRAY/CT/US/VASC/MRI EKG : Additional Comment Normal sinus rhythm rate of 88, left axis deviation, inferior infarct age un determined Q-wave in three and AVF, Q-wave in V1, abnormal EKG. Chest X-Ray : Additional Comments [facility] [place] [address], [place], [place] - [address] DIAGNOSTIC RADIOLOGY Patient: ADRIANA KIDD Medical Record: [id number] [facility] : 1955, Age: 68 Sex: Male Location: ER Patient Status: REG ER Service Date/Time: 07/18/24621 Ordering Physician: SANTIAGO BAEZA DO Exam: CHEST,SINGLE VIEW EXAM: XR Chest, 1 View CLINICAL INDICATION: CP TECHNIQUE: Frontal view of the chest. COMPARISON: DI CHEST,SINGLE VIEW on DOS: 06/11/24, DI CHEST,SINGLE VIEW on DOS: 05/10/24, DI CHEST,SINGLE VIEW on DOS: 06/16/23, DI CHEST,SINGLE VIEW on DOS: 05/25/23 FINDINGS: LUNGS AND PLEURAL SPACES: Unremarkable. No consolidation. No pneumothorax. HEART: Unremarkable. No cardiomegaly. MEDIASTINUM: Unremarkable. Normal mediastinal contour. BONES/JOINTS: Unremarkable. No acute fracture. OTHER FINDINGS: . IMPRESSION: No acute cardiopulmonary process. Electronically Signed by:BENEDICT ALEXIS MD Date & Time: 07/18/24652 Dictated by: BENEDICT ALEXIS MD Dictation date and time: 07/18/24652 Primary Care Provider: NO PRIMARY CARE PROVIDER cc: SANTIAGO BAEZA DO ~ Heart Score: Heart Score Response (Comments) Value History Moderate Suspicious 1 EKG Repolarization Disturb 1 Age >65 2 Risk Factors 1 or 2 risk factors 1 Troponin 1-2 x's Normal limit 1 Total 6 Medical Decision Making Additional info obtained from: old records Findings Differential diagnosis for chest pain include pulmonary embolism pneumonia, acute coronary syndrome, pneumothorax, musculoskeletal and chest wall pain including costochondritis, gastroesophageal reflux and esophageal spasm amongst others., I reviewed patient's prior cardiology consultation fit noted there was an apical dyskinesia on echocardiogram concerning for possible ischemia, patient did not get a cardiac catheterization at that time due to his concerns however patient is now agreeable with cardiac catheterization, Cardiology will be consulted. Heart Score: 6 Differential Dx:Considerations: Include: angina, chest wall pain, CHF, myocardial infarction, pericarditis, pleuritis, pneumonia, pneumothorax Departure Disposition: ADMITTED INPATIENT Impression: Primary Impression: Chest pain Additional Impressions: Chest pain at rest Transient hypotension Condition: Stable Referrals: NO PRIMARY CARE PROVIDER (PCP) Signature Scribe Signature: None Attestation: Dictated by myself SANTIAGO BAEZA DO July 18, 2024 06:47
--- NOTE | 2024-07-18 06:55 | RADIOLOGY REPORT ---
EXAM: XR Chest, 1 View CLINICAL INDICATION: CP TECHNIQUE: Frontal view of the chest. COMPARISON: DI CHEST,SINGLE VIEW on DOS: 06/11/24, DI CHEST,SINGLE VIEW on DOS: 05/10/24, DI CHEST,SING LE VIEW on DOS: 06/16/23, DI CHEST,SINGLE VIEW on DOS: 05/25/23 FINDINGS: LUNGS AND PLEURAL SPACES: Unremarkable. No consolidation. No pneumothorax. HEART: Unremarkable. No cardiomegaly. MEDIASTINUM: Unremarkable. Normal mediastinal contour. BONES/JOINTS: Unremarkable. No acute fracture. OTHER FINDINGS: . IMPRESSION: No acute cardiopulmonary process.
[2024-07-18 07:00] LABS: BASOPHILS % (AUTO) 0.1 % (0-1); EOSINOPHILS % (AUTO) 0.4 % (0-6); HEMATOCRIT 44.3 % (42.0-52.0); HEMOGLOBIN 14.8 g/dl (14.0-17.9); LYMPHOCYTES # (AUTO) 4.6 X10'3 (1.1-4.8); LYMPHOCYTES % (AUTO) 48.9 % (21-51); MEAN CORPUSCULAR HEMOGLOBIN 31.8 PG (27.0-31.0); MEAN CORPUSCULAR HGB CONC 33.3 g/dL (33.0-36.5); MEAN CORPUSCULAR VOLUME 95.5 FL (78-98); MEAN PLATELET VOLUME 7.6 FL (7.4-10.4); MONOCYTES # (AUTO) 0.7 X10'3 (0-0.9); MONOCYTES % (AUTO) 6.9 % (2-12); NEUTROPHILS # (AUTO) 4.2 X10'3 (1.8-7.7); NEUTROPHILS % (AUTO) 43.7 % (42-75); PLATELET COUNT 220 X10'3 (140-440); RED BLOOD COUNT 4.64 X10'6 (4.70-6.10); RED CELL DISTRIBUTION WIDTH 13.4 % (11.5-14.5); WHITE BLOOD COUNT 9.5 X10'3 (4.5-11.0)
[2024-07-18 07:17] LABS: ALANINE AMINOTRANSFERASE 38 U/L (12-78); ALBUMIN 3.6 G/DL (3.4-5.0); ALBUMIN/GLOBULIN RATIO 1.3 (1.1-1.5); ALKALINE PHOSPHATASE 80 IU/L (46-116); ANION GAP 9 (8-16); BILIRUBIN,TOTAL 0.6 MG/DL (0.1-1.0); BLOOD UREA NITROGEN 16 MG/DL (7-18); BUN/CREATININE RATIO 23.9 (10.0-20.0); CALCIUM 8.9 MG/DL (8.5-10.1); CHLORIDE 107 MMOL/L (99-107); CREATININE 0.67 MG/DL (0.60-1.10); GLUCOSE 92 MG/DL (70-104); SODIUM 142 MMOL/L (135-145); TOTAL PROTEIN 6.4 G/DL (6.4-8.2); eCRCL 97 ML/MIN; eGFR > 90 ML/MIN
[2024-07-18] MEDS ORDERED: carbidoba-levodopa 25-100mg tablet PO SCH (07:20)
[2024-07-18 07:25] LABS: PRO BRAIN NATRIURETIC PEPTIDE 180 PG/ML (0-125)
[2024-07-18] MEDS: carbidoba-levodopa 25-100mg tablet PO ONE (07:27)
[2024-07-18 07:32] LABS: ASPARTATE AMINO TRANSFERASE 32 U/L (10-37); POTASSIUM 4.3 MMOL/L (3.5-5.1)
--- NOTE | 2024-07-18 11:26 | HISTORY AND PHYSICAL-Residence ---
History & Physical Providers to CC Resident Creating Document: TREYSTEVERENUKAALEKS ~ History of Present Illness Primary Medical Doctor: Dr De La Cruz Reason for Admit\Complaint: chest pain History of Present Illness This is a 68-year-old gentleman with a past medical history of Parkinson's disease, chronic lymphocytic leukemia, and longstanding bilateral knee degenerative joint disease, who presents with concerns of chest pain. Patient abruptly developed constant, left-sided, nonradiating, pressure-like chest pain, with intensity of 9-10 early this morning around 5:00 a.m., which lasted for approximately 30 minutes. He denies any shortness of breath, diaphoresis, nausea or vomiting. Who was recently admitted for severe advanced degenerative joint disease (DJD). Due to his social circumstances, patient was referred to intermediate facility for physical and occupational therapy while waiting for knee replacement surgery. He is unable to ambulate due to DJD of left knee. The patient resided in [facility] (prior to his last admission) and is primarily followed by Eun Carbone NP at [facility]. I have discussed advance care planning with the patient. The patient has decided on a full code status. During last admission, he was DNR. Allergies: Coded Allergies: pseudoephedrine (Unverified Adverse Reaction, Mild, URINARY RETENTION, 07/12/24) Home Medications Home Medications Active Losartan Potassium 50 Mg Tablet 25 Mg PO DAILY 30 Days Jardiance (Empagliflozin) 10 Mg Tablet 1 Tab PO DAILY 30 Days Atorvastatin Calcium 20 Mg Tablet 40 Mg PO DAILY 30 Days Fluoxetine HCl 20 Mg Capsule 20 Mg PO DAILY 30 Days Children's Aspirin (Aspirin) 81 Mg Tab.chew 81 Mg PO DAILY@0830 30 Days Metoprolol Succinate 25 Mg Tab.sr.24h 25 Mg PO DAILY 30 Days Reported Carbidopa-Levodopa 25-100 Tab (Carbidopa/Levodopa) 25 Mg-100 Mg Tablet 1 Each PO TID Donepezil Hcl 10 Mg Tab.rapdis 10 Mg PO HS [employer] 5/325 MG (Acetaminophen/Hydrocodone Bitart) 5 Mg/325 Mg Tablet 1 Tab PO Q4H PRN Docusate Sodium 100 Mg Caps 1 Cap PO BID Past Medical History Past Medical History Advanced degenerative disease of bilateral knees, Parkinson's disease, hypertension, CLL, bilateral knee arthritis Past Surgical History Surgical History Comment Hydrocele correction, hernia repair Family History Family History: FH: lung cancer MOTHER, , Age: 60 years and older FH: lymphoma, malignant Sister, , Age: 60 years and older Overdose FATHER, , Age: 50's - 60 Past Social History Social History Comment The patient recently moved to [facility] three weeks ago after having experienced homelessness for approximately two years. He currently lives alone. He denies tobacco use, alcohol consumption, or using recreational drugs. Now coming from a SNF. Smoking: Non-Smoker Alcohol Use: None Drug Use: None Lives with: Alone Lives In: Home ROS All Other Systems: Reviewed and Negative ROS As stated above in the HPI, otherwise all systems are reviewed and negative. Constitutional: Reports: see HPI; Denies: chills, fever, weakness Eyes: Reports: no symptoms reported ENT: Reports: no symptoms reported Respiratory: Reports: no symptoms reported Cardiovascular: Reports: chest pain Exam Vitals: Vital Signs Date Time Temp Pulse Resp B/P (MAP) Pulse Ox O2 Delivery O2 Flow Rate FiO2 07/18/24 10:33 106 18 114/49 (70) 96 0 General Appearance: Patient appears alert, cooperative, and answers questions appropriately, though with bradyphrenic. Mildly Reduced facial expression, low volume speech, slightly monotonic Respiratory: Chest wall is symmetric and without deformity. No signs of respiratory distress. Equal breath sounds bilaterally. No wheeze, rub, Rales or crackles. Cardiac: RRR, no murmur, rub or gallop. Normal S1 and S2. GI: No tenderness. Abdomen symmetric, nondistended, soft, normal bowel sounds x4 quadrant normoactive. No guarding, no rebound or rigidity. No hepatosplenomegaly. No masses, no bruit, no flank pain bilaterally. Extremities: Swollen, tender, and painful left knee. Extremely limited range of motion. No redness or warmth Resting tremor noted in the upper extremities, decreases with a voluntary movement I did not appreciate cogwheel rigidity. Slow initiation and execution of voluntary movements. Neuro: Speech is clear, alert and oriented x4. No sensory or motor deficit, DTRs normal. Cranial nerves II to XII intact. Psych: Normal affect, good eye contact, no apparent hallucination, monotonic speech Diagnostic Data Last Recorded Lab Results: 07/18/2462707/18/24627 Advance Care Planning Advanced Care plannin - 30 Minutes Additional Plan Atypical anginal chest pain: EKGs did not show any acute ischemic changes, however, significant for some Q changes troponins not elevated Resumed metoprolol, atorvastatin, aspirin, and losartan Cardiology consultation for possible coronary angiography is requested, Dr. Acuna will evaluate the patient Telemetry monitoring Degenerative joint disease, bilateral knees CT scan revealed: - Severe medial and patellofemoral degenerative joint space narrowing. - There is no fracture, dislocation or aggressive osseous lesion. - Moderate to large joint effusion. MRI was significant for a medial meniscal tear, joint effusion, and severe degenerative changes. Waiting for Knee Replacement Surgery (Dr Ching). Home med rec done, we will continue pain management Hypertension: Continue losartan and metoprolol Parkinson's disease: Continue home medications i.e. Sinemet and donepezil Anxiety/depression: Continue fluoxetine Code status: Full Code DVT prophylaxis: Lovenox 40 mg subQ daily Renuka Hunt Internal Medicine Resident Date of Service: July 18, 2024 Billing Provider: ROBI GUERRA MD, SHAMS, RES July 18, 2024 11:26
[2024-07-18 12:00] VITALS: RESP 11; O2SAT 97
[2024-07-18 12:15] VITALS: BP 115/67; PULSE 78; TEMP 97.6; O2SAT 97
[2024-07-18] MEDS: losartan 25mg tablet PO SCH (12:23)
[2024-07-18] MEDS: metoprolol succinate 25mg (24-HOUR) SR. Tablet PO SCH (12:23)
[2024-07-18] MEDS: atorvastatin 20mg tablet PO SCH (12:24)
[2024-07-18] MEDS: carbidoba-levodopa 25-100mg tablet PO SCH (14:26)
[2024-07-18 15:00] VITALS: PULSE 100; TEMP 97.5; O2SAT 95
[2024-07-18 18:00] VITALS: BP 97/43; PULSE 68; RESP 15; TEMP 97.5; O2SAT 100
[2024-07-18] MEDS: docusate sod 100mg capsule PO SCH (19:47)
[2024-07-18] MEDS: donepezil 5mg tablet PO SCH (19:48)
[2024-07-18 20:00] VITALS: RESP 15; O2SAT 100
[2024-07-18 22:00] VITALS: BP 87/50; PULSE 71; RESP 16; TEMP 97.3; O2SAT 97
[2024-07-19] VITALS (15 sets, daily range): BP systolic 93–115; BP diastolic 43–82; PULSE 66–71; RESP 10–17; TEMP 97–98.4; O2SAT 94–98
[2024-07-19 04:49] LABS: BASOPHILS % (AUTO) 0.2 % (0-1); EOSINOPHILS # (AUTO) 0.1 X10'3 (0-0.9); HEMATOCRIT 40.9 % (42.0-52.0); LYMPHOCYTES # (AUTO) 4.7 X10'3 (1.1-4.8); LYMPHOCYTES % (AUTO) 52.3 % (21-51); MEAN CORPUSCULAR HEMOGLOBIN 32.5 PG (27.0-31.0); MEAN CORPUSCULAR HGB CONC 34.2 g/dL (33.0-36.5); MEAN PLATELET VOLUME 7.6 FL (7.4-10.4); MONOCYTES # (AUTO) 0.7 X10'3 (0-0.9); MONOCYTES % (AUTO) 7.8 % (2-12); NEUTROPHILS # (AUTO) 3.5 X10'3 (1.8-7.7); NEUTROPHILS % (AUTO) 38.7 % (42-75); PLATELET COUNT 215 X10'3 (140-440); RED CELL DISTRIBUTION WIDTH 13.5 % (11.5-14.5)
[2024-07-19 05:00] LABS: ALANINE AMINOTRANSFERASE 17 U/L (12-78); ALBUMIN 3.4 G/DL (3.4-5.0); ALBUMIN/GLOBULIN RATIO 1.3 (1.1-1.5); ALKALINE PHOSPHATASE 77 IU/L (46-116); ANION GAP 7 (8-16); ASPARTATE AMINO TRANSFERASE 27 U/L (10-37); BILIRUBIN,TOTAL 0.5 MG/DL (0.1-1.0); BLOOD UREA NITROGEN 21 MG/DL (7-18); BUN/CREATININE RATIO 26.3 (10.0-20.0); CALCIUM 8.8 MG/DL (8.5-10.1); CHLORIDE 106 MMOL/L (99-107); GLUCOSE 89 MG/DL (70-104); MAGNESIUM 2.2 MG/DL (1.5-2.4); POTASSIUM 4.1 MMOL/L (3.5-5.1); SODIUM 140 MMOL/L (135-145); TOTAL CARBON DIOXIDE 27.4 MMOL/L (24-32); eCRCL 81 ML/MIN; eGFR > 90 ML/MIN
[2024-07-19] MEDS ORDERED: fentaNYL/PF 50MCG/1 ML 2ML syringe ONE (07:19)
[2024-07-19] MEDS ORDERED: midazolam 1 mg/ML 2ml injection ONE (07:19)
[2024-07-19] MEDS ORDERED: heparin 1,000unit/ml 10ml vial 10 ML ONE (07:19)
[2024-07-19] MEDS ORDERED: LIDOcaine 1% (10mg/ml) 2ml vial ONE (07:19)
[2024-07-19] MEDS ORDERED: iohexol 350 MG/ML 50ML vial IV ONE (07:19)
[2024-07-19] MEDS ORDERED: verapamil 2.5 mg/ml inj IV ONE (07:19)
[2024-07-19] MEDS ORDERED: heparin 25,000 UNIT/250ml bag 0 ML IV ONE (07:19)
[2024-07-19] MEDS ORDERED: iohexol 350MG/ML 100ml bottle IV ONE (07:19)
[2024-07-19] MEDS ORDERED: nitroGLYCERIN 500mcg/5mL D5W 5 ML IV ONE (07:26)
[2024-07-19] MEDS ORDERED: aspirin 81mg tab.chew PO SCH (08:30)
--- NOTE | 2024-07-19 08:37 | CONSULTATION ---
DATE OF CONSULTATION: 07/18/2024 DICTATING PHYSICIAN: ODILIA Acuna MD CARDIOLOGY CONSULTATION PRIMARY PHYSICIAN: Dr. Rosenthal. REASON FOR EVALUATION: A 68-year-old patient from [facility] with abnormal stress test, presented with recurrent chest pain despite medical therapy. HISTORY OF PRESENT ILLNESS: The patient is a 68-year-old male with history of hypertension, hyperlipidemia, history of cardiomyopathy, congestive heart failure, and Parkinson's disease, who has presented with recurrent episodes of chest pain. The patient was hospitalized from 06/11/2024 to 06/13/2024 and underwent myocardial perfusion scan, which showed inferior wall reversible defect and his inferior wall was hypokinetic with EF of 36%. His echocardiogram at that time showed an EF of 45% to 50% with inferoseptal hypokinesia and trace [facility] and TR. PA systolic pressure of 36 mmHg. His echocardiogram back on 05/26/2023, had showed EF of 65% to 70% with no significant valvular abnormalities at that time. However, during last admission, the patient had evaluation and medical therapy and gone home. Now this morning, he woke up with severe substernal chest discomfort, 11/16 and came to the emergency room. The patient in the last few months has been having exertional shortness of breath, fatigue and some chest discomfort goes away with rest. The patient is also under increased stress in the last few months. He has been and somewhat homeless with unstable living situation a few weeks ago. So, the patient has been a resident of [facility] in the last few weeks. He is followed by Eun Alvarez at the [facility]. PAST MEDICAL HISTORY: * Hypertension. * Hyperlipidemia. * Parkinson's disease, diagnosed about 4 years ago. He has a [place] neurologist. He has also got anxiety, depression, DJD. * Chronic lymphatic leukemia, diagnosed in 2014, being followed annually. His white count is 9.5 during this admission. * Mild dementia. PAST SURGICAL HISTORY: He had hydrocele and hernia repair in 2014, tonsillectomy. SOCIAL HISTORY: Father at 52 because of suicide. Mother at 60, had history of heart disease and lung cancer and CHF. The patient got recently, so was relatively somewhat homeless and he is now in [facility]. His son is an master control engineer. His sister helps him as well. The patient used to be automotive light mechanic, retired in 2019. REVIEW OF SYSTEMS: Wearing glasses, impaired hearing in the right ear. The patient used to go to gym many years ago, but currently not exercising. Claims his left knee is painful. Walks around the house. Reports dyspnea while going uphill, NYHA dyspnea class II to III. No history of sustained palpitations or syncopal episode. No history of congenital or rheumatic heart disease. MEDICATIONS: At home aspirin 81 mg p.o. daily, atorvastatin 20 mg p.o. daily, carbidopa/levodopa 25/100 p.o. t.i.d., Col[place] 100 mg p.o. b.i.d., Donepezil 10 mg p.o. daily, Jardiance 10 mg p.o. daily, fluoxetine 20 mg p.o. daily, hydrocodone and losartan 50 mg p.o. daily, metoprolol succinate 25 mg p.o. daily. PHYSICAL EXAMINATION: GENERAL: The patient is conscious, alert, has Parkinson's features with slow speech and rigidity. VITAL SIGNS: Pulse 78, blood pressure 114/49. NECK: No JVD. Carotids are equal and well felt. CARDIAC: Regular rate and rhythm. S1 and S2 normal. No S3 or S4. LUNGS: Decreased sounds bibasilar. ABDOMEN: Soft. Bowel sounds present. EXTREMITIES: Trace edema. Labs include WBC 9.4, hemoglobin 14.8, hematocrit was 44.3, platelet count 220, sodium 142, potassium 4.3, chloride 107, carbon dioxide 26, BUN 16, creatinine 0.67, proBNP 180. ASSESSMENT AND PLAN: * A 68-year-old male with hypertension, hyperlipidemia, exertional angina, positive for inferior reversibility. Echo with [id number] LV systolic dysfunction with LV ejection fraction 45% to 50% inferior septal hypokinesia, had declined for cardiac catheterization in the prior admission, now would like to proceed with the same. Risks, benefits and alternative options discussed. His son was present via phone, both agreed. We will schedule for the same. Continue medical therapy for now. * Hypertension and hyperlipidemia, counseled on coronary risk factor modification to keep LDL less than 55 mg percent, systolic blood pressure less than 130 mmHg. * Cardiomyopathy, probably ischemic with EF 45% to 50%. Continue GDMT. * Other comorbidities, Parkinson's disease, and chronic lymphatic leukemia and mild dementia. ODILIA Acuna MD TID: [id number] RECEIPT: [id number] OBIE/ALBARO/BARB cc: Eun ROMO
[2024-07-19 08:42] LABS: ISTAT HGB ART 13.3 g/dl (14.0-17.9); ISTAT Hct ART 39 %PCV (42-52); ISTAT O2 SATURATION ARTERIAL 94 % (95-98); ISTAT SOURCE ART
[2024-07-19 08:55] LABS: ISTAT HGB MIX 12.9 g/dl (14.0-17.9); ISTAT Hct MIX 38 %PCV (42-52); ISTAT O2 SATURATION MIX VENOUS 70 % (60-80); ISTAT SOURCE VEN
[2024-07-19] MEDS: FLUoxetine 20mg capsule PO SCH (09:54)
[2024-07-19] MEDS: EMPAGLIFLOZIN 10 MG TABLET PO SCH (09:54)
[2024-07-19] MEDS: aspirin 81mg tab.chew PO SCH (09:54)
[2024-07-19] MEDS: normal saline 1000ml 1,000 ML IV ONE (09:56)
--- NOTE | 2024-07-19 14:02 | PROGRESS NOTE- Residence ---
Progress Note - Resident Providers to CC Resident Creating Document: LAYTON HUNT RES ~ Antibiotic Timeout Antibiotic Ordered?: No Subjective Patient was seen and examined at bedside. His chest pain has subsided. He has just got back from heart catheterization procedure by Dr. Acuna, report pending. Objective Vital Signs Date Time Temp Pulse Resp B/P (MAP) Pulse Ox O2 Delivery O2 Flow Rate FiO2 07/19/24 11:07 97.1 71 17 104/69 (81) 97 Room Air 07/18/24 10:33 0 General Appearance: Patient appears alert, cooperative, and answers questions appropriately, though with bradyphrenic. Mildly Reduced facial expression, low volume speech, slightly monotonic Respiratory: Chest wall is symmetric and without deformity. No signs of respiratory distress. Equal breath sounds bilaterally. No wheeze, rub, Rales or crackles. Cardiac: RRR, no murmur, rub or gallop. Normal S1 and S2. GI: No tenderness. Abdomen symmetric, nondistended, soft, normal bowel sounds x4 quadrant normoactive. No guarding, no rebound or rigidity. No hepatosplenomegaly. No masses, no bruit, no flank pain bilaterally. Extremities: Swollen, tender, and painful left knee. Extremely limited range of motion. No redness or warmth Resting tremor noted in the upper extremities, decreases with a voluntary movement I did not appreciate cogwheel rigidity. Slow initiation and execution of voluntary movements. Neuro: Speech is clear, alert and oriented x4. No sensory or motor deficit, DTRs normal. Cranial nerves II to XII intact. Psych: Normal affect, good eye contact, no apparent hallucination, monotonic speech Result Diagram: 07/19/24 0400 07/19/24 0400 Advance Care Planning Advanced Care plannin - 30 Minutes Assessment Assessment A 68-year-old patient from [facility] with abnormal stress test, presented with recurrent chest pain despite medical therapy. Plan Plan Atypical anginal chest pain: EKGs did not show any acute ischemic changes, however, significant for some Q changes troponins not elevated Continue sotalol, aspirin, Jardiance, losartan, and atorvastatin He was admitted on June 11, 2024 for chest tightness, underwent Lexiscan on the same day which showed mild stress-induced ischemia and left went ventricular inferior wall. Refused [facility] at that time. Agreed for [facility] this time, Dr. Aucna consulted - undergone [facility], report yet to be available. Telemetry monitoring Degenerative joint disease, bilateral knees CT scan revealed: - Severe medial and patellofemoral degenerative joint space narrowing. - There is no fracture, dislocation or aggressive osseous lesion. - Moderate to large joint effusion. MRI was significant for a medial meniscal tear, joint effusion, and severe degenerative changes. Waiting for Knee Replacement Surgery (Dr Ching). Home med rec done, we will continue pain management Hypertension: Continue losartan and metoprolol Parkinson's disease: Continue home medications i.e. Sinemet and donepezil Anxiety/depression: Continue fluoxetine Code status: Full Code DVT prophylaxis: Lovenox 40 mg subQ daily Disposition: Patient will be transferred back to [facility] tomorrow. Layton Hunt Internal Medicine Resident Date of Service: July 19, 2024 Billing Provider: ROBI GUERRA MD,LAYTON, RES July 19, 2024 14:02
[2024-07-19] MEDS: HYDROcodone/acetaminophen 5mg/325mg tablet PO PRN (21:08)
[2024-07-19] MEDS: atorvastatin 20mg tablet PO SCH (21:11)
[2024-07-19] MEDS: sotalol HCl 40mg (1/2 tablet) PO SCH (21:11)
[2024-07-19] MEDS: enoxaparin 40mg/0.4ml syringe SUBCUT SCH (21:12)
[2024-07-20 02:00] VITALS: BP 99/55; PULSE 65; RESP 13; TEMP 97; O2SAT 97
--- NOTE | 2024-07-20 04:23 | ELECTROCARDIOGRAPH REPORT ---
[facility] Test Date: 2024-07-20 Test Time: 04:20:04 Pat Name: ADRIANA KIDD Department: [facility] Patient ID: [facility]-[id number] Room: [place] [address] [address] Gender: M Surgical Pathologist: : 1955 Requested By: VI ABERNATHY Order Number: [id number] Reading MD: Dr. Srikanth Muniz Measurements Intervals [place] Rate: 61 P: 51 PA: 154 QRS: -69 QRSD: 110 T: -3 QT: 426 QTc: 429 Interpretive Statements Sinus rhythm Multiple ventricular premature complexes Inferior infarct, old Electronically Signed On 07-20-2024 8:51:[address] Srikanth Muniz Please click the below link to view image of tracing.
--- NOTE | 2024-07-20 04:34 | CARDIOLOGY REPORT ---
DATE OF SERVICE: 07/19/2024 DICTATING PHYSICIAN: ODILIA Acuna MD CARDIAC CATHETERIZATION GENDER: Male. AGE: 68 years. HEIGHT: 170 cm. WEIGHT: 71.8 kg. BODY SURFACE AREA: 1.82 m2. INDICATION: The patient is a 68-year-old male with history of Parkinson's disease and hyperlipidemia who came to the hospital with chest pain a few weeks ago and found to have inferior reversible ischemia, preferred medical therapy. Came back today with recurrent chest pain, mildly elevated troponin. After discussing risks, benefits and alternative options, the patient prefers to proceed with definitive coronary angiography. Risks, benefits, and alternative options discussed. Informed consent obtained. PRIMARY PHYSICIAN: [facility]. REAL ESTATE SUBAGENT: ODILIA Acuna MD PROCEDURES DONE: * Ultrasound guided right radial artery visualization access. * Right heart catheterization. * Left heart catheterization. * LVG. * Coronary cineangiography. * Conscious sedation of 45 minutes. FINDINGS: HEMODYNAMICS: Aortic systolic 87, diastolic 45, mean 64 mmHg. LVEDP of 0 mmHg with no gradient across the aortic valve. Right atrial mean 1 mmHg. RV 21/3 mmHg. PA 21/11 mmHg. Pulmonary capillary wedge pressure 6 mmHg. Aortic oxygen saturation 94%. Pulmonary artery oxygen saturation 70%. Cardiac output by thermodilution method is 5.37 L per minute. Cardiac index 2.95 L per minute. LEFT VENTRICULOGRAM: Overall left ventricular systolic function is about 50%. CORONARY CINEANGIOGRAPHY: Left main coronary artery is a large caliber vessel arising from the left main. Left coronary sinus, engaged with JL4 catheter from right radial approach. LAD is a medium caliber vessel arising at the bifurcation of left main coronary artery, courses through the anterior interventricular, ends by wrapping around the apex. Mid LAD has areas of 30% narrowing. Diagonal 1 is 1.75 mm caliber vessel with 40% narrowing. Diagonal 2 is 1.5 mm vessel. Rest of the LAD shows mild luminal irregularities. Circumflex artery is a medium caliber nondominant vessel arising at the bifurcation of left main coursing to the left AV groove. Proximal circumflex has about 30% narrowing. OM1 is less than 1.5 mm caliber with mild luminal irregularities. OM2 is principal dominant vessel 3.5 mm in diameter divided into into three divisions with mild luminal irregularities. Right coronary artery is a medium caliber dominant vessel arising at the right aortic sinus and courses through the right AV groove, ends at the posterior crux by dividing into PDA and and posterolateral branch. mid RCA has areas of 30% narrowing. Distal RCA has an ectatic segment. PDA arises little bit proximal to the distal one-third. PDA and posterolateral has mild luminal irregularities. IMPRESSION: A 68-year-old male with LV ejection fraction 50%. LVDP of 1 mmHg with no gradient across the aortic valve. Pulmonary capillary wedge pressure is 6 mmHg. PA pressure 21/11 mmHg. RECOMMENDATIONS: Recommend continue aggressive coronary risk factor modification, namely low fat, low cholesterol diet, maintaining ideal body weight, keeping LDL less than 70 mg percent with regular exercise program. The patient also found to have multiple episodes of nonsustained SVT for which he was started on sotalol 40 mg p.o. b.i.d. check EKG in a.m.. BV MD Armand TID: [id number] RECEIPT: [id number] OBIE/ERICH/MAR [facility]
[2024-07-20] MEDS: morphine 2 MG/ML inj. syringe IV ONE (04:35)
[2024-07-20 07:08] LABS: EOSINOPHILS # (AUTO) 0.1 X10'3 (0-0.9); LYMPHOCYTES # (AUTO) 4.2 X10'3 (1.1-4.8); MEAN PLATELET VOLUME 7.4 FL (7.4-10.4); MONOCYTES # (AUTO) 0.6 X10'3 (0-0.9); NEUTROPHILS # (AUTO) 3.1 X10'3 (1.8-7.7); PLATELET COUNT 213 X10'3 (140-440); RED CELL DISTRIBUTION WIDTH 13.4 % (11.5-14.5)
[2024-07-20 07:10] LABS: BASOPHILS % (AUTO) 0.2 % (0-1); EOSINOPHILS % (AUTO) 1.3 % (0-6); HEMATOCRIT 40.5 % (42.0-52.0); HEMOGLOBIN 13.9 g/dl (14.0-17.9); MEAN CORPUSCULAR HEMOGLOBIN 32.9 PG (27.0-31.0); MEAN CORPUSCULAR HGB CONC 34.3 g/dL (33.0-36.5); MEAN CORPUSCULAR VOLUME 95.8 FL (78-98); MONOCYTES % (AUTO) 7.4 % (2-12); NEUTROPHILS % (AUTO) 38.1 % (42-75); RED BLOOD COUNT 4.23 X10'6 (4.70-6.10)
[2024-07-20 07:40] LABS: ALBUMIN 3.3 G/DL (3.4-5.0); ANION GAP 6 (8-16); BLOOD UREA NITROGEN 17 MG/DL (7-18); BUN/CREATININE RATIO 24.6 (10.0-20.0); CALCIUM 8.6 MG/DL (8.5-10.1); CHLORIDE 109 MMOL/L (99-107); CREATININE 0.69 MG/DL (0.60-1.10); GLUCOSE 88 MG/DL (70-104); POTASSIUM 4.3 MMOL/L (3.5-5.1); PRO BRAIN NATRIURETIC PEPTIDE 59 PG/ML (0-125); SODIUM 143 MMOL/L (135-145); eCRCL 94 ML/MIN; eGFR > 90 ML/MIN
[2024-07-20 07:57] VITALS: BP 114/67; PULSE 62; RESP 16; TEMP 97.6; O2SAT 95
[2024-07-20 08:00] VITALS: RESP 16; O2SAT 95
[2024-07-20 08:16] VITALS: BP_SYST 114; PULSE 62
[2024-07-20 09:07] LABS: MICROCYTOSIS 1+; PLATELET ESTIMATE NORMAL; TOTAL CELLS COUNTED 100
--- NOTE | 2024-07-20 14:48 | DISCHARGE SUMMARY-Residence ---
Discharge Summary Providers to CC Resident Creating Document: TREYSTEVELAYTON, ALEKS ~ Discharge Summary Admission Diagnosis: Unstable angina Hospital Course DATE OF ADMISSION: July 18, 2024 DATE OF DISCHARGE: July 20, 2024 Discharge Diagnosis\Comment: Chest pain, anginal chest pain ruled out, likely GERD/PUD CHF with mid-range ejection fraction Degenerative joint disease, bilateral knees Hypertension Parkinson's disease Anxiety/depression Operations\Procedures: * Ultrasound guided right radial artery visualization access. * Right heart catheterization. * Left heart catheterization. * LVG. * Coronary cineangiography. Consultants: Dr. Acuna Complications: None Condition on DC: Stable Discharge Summary: Patient is a 68-year-old male with history of Parkinson's disease and hyperlipidemia who came to the hospital with chest pain a few weeks ago and found to have inferior reversible ischemia, preferred medical therapy. Came back today with recurrent chest pain, mildly elevated troponin. After discussing risks, benefits and alternative options, the patient prefers to proceed with definitive coronary angiography. Subsequently, he undergone the procedure with the finding mentioned below. Cardiology recommended continue aggressive coronary risk factor modification, namely low fat, low cholesterol diet, maintaining ideal body weight, keeping LDL less than 70 mg percent with regular exercise program. Additionally, the patient also found to have multiple episodes of nonsustained SVT for which he was started on sotalol 40 mg p.o. b.i.d. Discharge course: Patient is stable. Chest pain resolved. He is discharged back to [facility]. Discharge instructions: You recently underwent coronary angiography, which did not reveal any significant blockages. During your hospital stay, your experienced a nonsustained episode of supraventricular tachycardia, for which you were started on sotalol. Please take the med this medication exactly as described. During a prior admission, you were referred to Dr. Ching for evaluation and management of your left knee, including possible knee replacement surgery. Please ensure timely follow up with him. Also, follow up with your primary care doctor for routine care, medication management, and coordination of your ongoing health needs. Continue working on coronary risk factor modifications, including lifestyle changes such as: Maintaining a heart healthy diet, regular physical activity as tolerated, blood pressure and cholesterol control Discharge physical exam: Vital Signs Date Time Temp Pulse Resp B/P (MAP) Pulse Ox O2 Delivery O2 Flow Rate FiO2 07/20/24 08:16 62 07/20/24 08:00 16 95 Room Air 07/20/24 07:57 97.6 114/67 (83) 07/18/24 10:33 0 General Appearance: Patient appears alert, cooperative, and answers questions appropriately, though with bradyphrenic. Mildly Reduced facial expression, low volume speech, slightly monotonic Respiratory: Chest wall is symmetric and without deformity. No signs of respiratory distress. Equal breath sounds bilaterally. No wheeze, rub, Rales or crackles. Cardiac: RRR, no murmur, rub or gallop. Normal S1 and S2. GI: No tenderness. Abdomen symmetric, nondistended, soft, normal bowel sounds x4 quadrant normoactive. No guarding, no rebound or rigidity. No hepatosplenomegaly. No masses, no bruit, no flank pain bilaterally. Extremities: Swollen, tender, and painful left knee. Extremely limited range of motion. No redness or warmth Resting tremor noted in the upper extremities, decreases with a voluntary movement I did not appreciate cogwheel rigidity. Slow initiation and execution of voluntary movements. Neuro: Speech is clear, alert and oriented x4. No sensory or motor deficit, DTRs normal. Cranial nerves II to XII intact. Psych: Normal affect, good eye contact, no apparent hallucination, monotonic speech Discharge medications: Isosorbide mononitrate/Imdur 30 mg p.o. daily Pantoprazole 40 mg p.o. daily Atorvastatin 40 mg p.o. daily Sotalol 40 mg p.o. twice daily Aspirin 81 mg p.o. daily Fluoxetine 20 mg p.o. daily Jardiance 10 mg p.o. daily Donepezil 10 mg p.o. daily Carbidopa/levodopa 25/100 mg 3 times daily Losartan 25 mg p.o. daily Coronary angiography performed [id number]: HEMODYNAMICS: Aortic systolic 87, diastolic 45, mean 64 mmHg. LVEDP of 0 mmHg with no gradient across the aortic valve. Right atrial mean 1 mmHg. RV 21/3 mmHg. PA 21/11 mmHg. Pulmonary capillary wedge pressure 6 mmHg. Aortic oxygen saturation 94%. Pulmonary artery oxygen saturation 70%. Cardiac output by thermodilution method is 5.37 L per minute. Cardiac index 2.95 L per minute. LEFT VENTRICULOGRAM: Overall left ventricular systolic function is about 50%. CORONARY CINEANGIOGRAPHY: Left main coronary artery is a large caliber vessel arising from the left main. Left coronary sinus, engaged with JL4 catheter from right radial approach. LAD is a medium caliber vessel arising at the bifurcation of left main coronary artery, courses through the anterior interventricular, ends by wrapping around the apex. Mid LAD has areas of 30% narrowing. Diagonal 1 is 1.75 mm caliber vessel with 40% narrowing. Diagonal 2 is 1.5 mm vessel. Rest of the LAD shows mild luminal irregularities. *Problems/Diagnosis: (1) Parkinsons disease Status: Acute Total Time Spent on D/C: Up to 30 Minutes Date of Service: July 20, 2024 Billing Provider: ROBI GUERRA MD, SHAMS, RES July 20, 2024 14:41
--- NOTE | 2024-07-20 17:08 | PROGRESS NOTE ---
Progress Note Cardiology Providers to CC ~ Subjective Subjective Patient seen and examined this morning. Before discharge. Patient had an episode of nonexertional chest pain which responded to morphine last night. All his questions related to noncardiac chest pain and workup discussed with patient. Objective Result Diagram: 07/20/2442 07/20/24641 Objective General: Normal body habitus, no acute distress, HEENT: Sclerae clear, PERRL, gums without lesions or bleeding, oropharynx clear without erythema or exudate. Neck: Supple without enlargement of the thyroid, or lymphadenopathy, Chest: Normal size and shape, no tenderness, nonlabored breathing, Breath sounds clear to auscultation. Heart: Regular in rate and rhythm, S1 and S2 normal, no S3-S4 or murmurs. Abdomen: Soft, nontender, no organomegaly, bowel sounds present. Extremities: No edema cyanosis or clubbing. Problem\Assessment\Plan Additional Plan 1. * A 68-year-old male with hypertension, hyperlipidemia, exertional angina, positive inferior reversibility. Echo with [id number] LV systolic dysfunction with LV ejection fraction 45% to 50% inferior septal hypokinesia, had declined for cardiac catheterization in the prior admission, now would like to proceed with the same. Cardiac catheterization on revealed Nonobstructive CAD. Continue medical therapy. Recommend pantoprazole 40 mg p.o. q.day Imdur 30 mg p.o. q.day Also evaluate for noncardiac cause of chest pain. Patient to follow up with PMD as well 2. Episodes of nonsustained SVT: Recommend sotalol 40 mg p.o. b.i.d. 2. * Hypertension and hyperlipidemia, counseled on coronary risk factor modification to keep LDL less than 55 mg percent, systolic blood pressure less than 130 mmHg. 3. * Cardiomyopathy, probably ischemic with EF 45% to 50%. Continue GDMT. 4. * Other comorbidities, Parkinson's disease, and chronic lymphatic leukemia and mild dementia. Patient to follow up with PMD and with me in 1-2 months. VI ABERNATHY MD July 20, 2024 17:08
[2024-07-21] MEDS ORDERED: pantoprazole 40mg Tablet.DR PO SCH (07:30)
[2024-07-21] MEDS ORDERED: isosorbide mononitrate 30mg tab.SR.24H PO SCH (08:00)
== END 2024-07-20 15:45 | DRG 384 ==
LOC: ER 06:19 → ED HOLD 10:19 → PCU 3S 11:55
PROVIDERS: ADMIT Family Medicine; ATTEND Family Medicine
PROC: 4A023N8 Measurement of Cardiac Sampling and Pressure, Bilateral, Percutaneous Approach (ICD-10-PCS; principal; 2024-07-19)
PROC: B2111ZZ Fluoroscopy of Multiple Coronary Arteries using Low Osmolar Contrast (ICD-10-PCS; 2024-07-19)
PROC: B2151ZZ Fluoroscopy of Left Heart using Low Osmolar Contrast (ICD-10-PCS; 2024-07-19)
DX: K27.9 Peptic ulcer, site unspecified, unspecified as acute or chronic, without hemorrhage or perforation (principal); Z59.00 Homelessness unspecified; C91.10 Chronic lymphocytic leukemia of B-cell type not having achieved remission; I47.10 Supraventricular tachycardia, unspecified; I42.9 Cardiomyopathy, unspecified; I50.20 Unspecified systolic (congestive) heart failure; K21.9 Gastro-esophageal reflux disease without esophagitis; I11.0 Hypertensive heart disease with heart failure; Z66 Do not resuscitate; E78.5 Hyperlipidemia, unspecified; F02.A0 Dementia in other diseases classified elsewhere, mild, without behavioral disturbance, psychotic disturbance, mood disturbance, and anxiety; G20.A1 Parkinson's disease without dyskinesia, without mention of fluctuations; I95.9 Hypotension, unspecified; F32.A Depression, unspecified; F41.9 Anxiety disorder, unspecified; M17.0 Bilateral primary osteoarthritis of knee; Z79.82 Long term (current) use of aspirin; Z79.899 Other long term (current) drug therapy
CPT/HCPCS: 36415; 71045; 76937; 80048; 80053; 82803; 83735; 83880; 84484; 85007; 85014; 85025; 87081; 93005; 93460; 99152; 99153; 99285; A6258; C1725; C1751; C1769; C1894; G0378; J1644; J1650; J2003; J2250; J2270; J3010; J3490; J7030; Q9967

== ENCOUNTER 2024-09-13 10:43 | Emergency (ER) | payer OTHER, MEDICARE ==
[~2024-09-13] VITALS: Ht 170.2 cm; Wt 77.0 kg
--- NOTE | 2024-09-13 11:07 | Physician Documentation ---
History of Present Illness ~ Chief Complaint: Hypotension Stated Complaint: HYPERTENSION Time Seen by MD: 10:57 OK to notify your PCP?: Yes Primary Medical Doctor: Dr De La Cruz HPI This is a 68-year-old gentleman with a known history of Parkinson's, who comes in for evaluation of low blood pressure as discovered by his in house physical therapist. Systolic was in the 70s. He states that he was feeling sleepy and dizzy all morning. No particular palliating or aggravating factors. Denies any chest pain or difficulty breathing. Lightheadedness is worse when he is standing up. Denies any concern for tobacco, alcohol or illicit substances use Medication Reconciliation Allergies: Coded Allergies: pseudoephedrine (Unverified Adverse Reaction, Mild, URINARY RETENTION, 07/12/24) Scheduled Aspirin (Children's Aspirin), 81 MG PO DAILY@0830 Atorvastatin Calcium (Atorvastatin Calcium), 40 MG PO DAILY Carbidopa/Levodopa (Carbidopa-Levodopa 25-100 Tab), 1 CAPSULE PO TID, (Reported) Docusate Sodium (Docusate Sodium), 1 CAP PO BID, (Reported) Donepezil Hcl (Donepezil Hcl), 10 MG PO HS, (Reported) Empagliflozin (Jardiance), 1 TAB PO DAILY Fluoxetine HCl (Fluoxetine HCl), 20 MG PO DAILY Losartan Potassium (Losartan Potassium), 25 MG PO DAILY Metoprolol Succinate (Metoprolol Succinate), 25 MG PO DAILY Scheduled PRN Hydrocodone Bit/Acetaminophen 5/325 MG ([place] 5/325 MG), 1 TAB PO Q4H PRN for moderate or severe pain, (Reported) Past Medical History Past Medical History: Dementia, Parkinson's Disease, Chronic Pain, *PSYCH* Past Surgical History: abdominal surgery Patient History: FH: lung cancer MOTHER, , Age: 60 years and older FH: lymphoma, malignant Sister, , Age: 60 years and older Overdose FATHER, , Age: 50's - 60 Alcohol Use: None Drug Use: none Lives with: Alone Lives In: Home Review of Systems ROS 10 point review of systems was performed and unless noted above in HPI is negative for acute process/complaint. Physical Exam Vital Signs: Temperature: 97.9, Source: Oral, Heart Rate: 77, Respiratory Rate: 16, BP: 92/50, Pulse Oximetry: 94, Weight: 77.000 Oxygen Flow Rate: 0 Physical Exam GENERAL: Awake, alert, oriented at baseline, no apparent distress, non-toxic appearing, answers questions, follows commands appropriately. Examined in bed 2. HEENT: Atraumatic, normocephalic, pupils equal, extraocular muscles intact, sclerae anicteric, mucus membranes moist, oropharynx is clear, no stridor. NECK: supple, full active range of motion, trachea midline, no thyromegaly, no lymphadenopathy, no JVD. CARDIOVASCULAR: regular rate/rhythm, no murmurs/gallops/rubs, Pulses are 2+ in all extremities and symmetric. Capillary refill less than 2 seconds. PULMONARY: Nonlabored, good air movement ,no respiratory distress, speaking in full sentences, clear to auscultation bilaterally, no wheezing, no ronchi, no rales, no accessory muscle use. GASTROINTESTINAL: Soft, non-tender, non-distended, normal active bowel sounds, no organomegaly, no pulsatile masses, no CVA tenderness. NEUROLOGIC: Lucid with normal mental status. Normal facial symmetry. Moves all extremities symmetrically and with purpose. No truncal ataxia. Speech is fluid without evidence of dysarthria or aphasia, no focal deficits appreciated. MUSCULOSKELETAL: There is full range of motion of all extremities. There is no joint pain or joint swelling or joint erythema. There is no muscle pain or tenderness or swelling. EXTREMITIES: warm, well-perfused, no cyanosis, no clubbing, no edema, no acute deformities. Skin: warm, dry, no rashes or lesions, no jaundice, no petechiae orpurpura. No ecchymosis. PSYCHIATRIC: Normal affect, normal insight, normal concentration. Focused exam: [] Left knees in the brace. Progress Results/Orders Results/Orders Orders - JOSE GUADALUPE GIRON DO Hs Troponin I W Calculations (09/13/24 14:02) Completed Orders - JOSE GUADALUPE GIRON DO Electrocardiogram (09/13/24 10:49) Cbc/Diff (09/13/24 11:02) MG (09/13/24 11:02) Normal Saline 1000ml (Sodium Chloride 10 (09/13/24 11:05) CMP (09/13/24 11:02) Hs Troponin I W Calculations (09/13/24 11:02) Hs Troponin I W Calculations (09/13/24 13:02) Ua W/Microscopic, Cult If Ind (09/13/24 11:33) Medications Received in ER Medications (Trade) Dose Ordered Sig/Jani Route PRN Reason Start Time Stop Time Status Last Admin Dose Admin (sodium chloride 1000ml IV soln) 500 ml ONCE ONCE IVB 09/13/24 11:05 09/13/24 11:06 DC 09/13/24 11:37 500 ML Vital Signs 09/13/24 09/13/24 09/13/24 09/13/24 10:45 11:40 12:22 12:42 Temp 97.9 Pulse 77 72 74 Resp 16 17 16 18 B/P (MAP) 92/50 91/54 (66) 119/74 (89) Pulse Ox 94 98 98 O2 Flow Rate 0 0 09/13/24 09/13/24 13:34 14:10 Pulse 102 107 Resp 20 17 B/P (MAP) 119/82 (94) 138/92 (107) Pulse Ox 94 95 Laboratory Tests Test 09/13/24 11:26 09/13/24 11:33 09/13/24 12:57 White Blood Count 9.6 Red Blood Count 3.96 L Hemoglobin 12.5 L Hematocrit 37.2 L Mean Corpuscular Volume 93.9 Mean Corpuscular Hemoglobin 31.6 H Mean Corpuscular Hemoglobin Concent 33.7 Red Cell Distribution Width 13.0 Platelet Count 255 Mean Platelet Volume 7.1 L Neutrophils (%) (Auto) 57.8 Lymphocytes (%) (Auto) 31.6 Monocytes (%) (Auto) 10.2 Eosinophils (%) (Auto) 0.2 Basophils (%) (Auto) 0.2 Neutrophils # (Auto) 5.6 Lymphocytes # (Auto) 3.0 Monocytes # (Auto) 1.0 H Eosinophils # (Auto) 0.0 Basophils # (Auto) 0.0 CBC Comment Sodium Level 142 Potassium Level 3.8 Chloride Level 106 Carbon Dioxide Level 27.4 Anion Gap 9 Blood Urea Nitrogen 14 Creatinine 0.80 Estimated GFR/1.73 m2 > 90 BUN/Creatinine Ratio 17.5 Glucose Level 73 Calcium Level 8.6 Magnesium Level 2.3 Total Bilirubin 0.4 Aspartate Amino Transf (AST/SGOT) 15 Alanine Aminotransferase (ALT/SGPT) 11 L Alkaline Phosphatase 82 Troponin I High Sensitivity 5 5 Total Protein 5.7 L Albumin 3.2 L Globulin 2.5 L Albumin/Globulin Ratio 1.3 Chemistry Comments Urine Specimen Description Urinal Urine Color Yellow Urine Clarity Clear Urine pH 6.0 Urine Specific [place] <=1.005 Urine Protein Negative Urine Glucose (UA) >=1000 H Urine Ketones Negative Urine Occult Blood Negative Urine Nitrite Negative Urine Bilirubin Negative Urine Urobilinogen 0.2 Urine Leukocyte Esterase Negative Urine RBC 0-2 Urine WBC 0-4 Urine Squamous Epithelial Cells None seen Urine Amorphous Urates 1+ Urine Bacteria None seen Urine Culture Indicated Not ind Volume Urine Centrifuged 10 ml Urine Comment Troponin I High Sens Percent Delta 0 Troponin I Hi Sens Absolute Change 0 EKG/XRAY/CT/US/VASC/MRI EKG : Additional Comment EKG was obtained and interpreted by myself shows sinus rhythm of 77, normal AK interval, narrow QRS, no QT prolongation, left axis, no STEMI Medical Decision Making Findings Facility Status: ED Holds, RME process The plan was discussed with the patient, who demonstrates clear understanding of the plan and is in agreement with the plan unless otherwise noted in the chart. All questions have been answered, all concerns were addressed unless otherwise documented. I was available throughout their ED stay for frequent reassessment and questions. Differential Diagnoses (considered and possible or likely): [Dehydration, electrolyte derangement, less likely ACS , less likely cardiogenic shock, less likely infection sepsis UTI] ??Differential Diagnoses (considered and unlikely, not requiring evaluation currently): [No evidence of lateralizing signs suspect a stroke] MDM Data Please see HPI for the following: Independent Historians and external Records Review. Historian: [Patient] Independent Historians: ?[EMS, record review] Medication Management: [Reviewed medication list] Social History and determinants: [Reviewed] Please see the body of the note for the following: Any independent interpretations of ECG, imaging studies. All vitals signs/haemodynamics, ordered tests were independently reviewed and interpreted by myself. Nursing triage complaint and vitals reviewed, additional nursing notes were reviewed as available and I agree unless otherwise noted or documented in contradiction in the chart Vital Signs: Independently reviewed Labs: Independently interpreted Imaging: Independently interpreted Old Medical Records: Independently reviewed, see HPI for relevant summary and information Pulse Oximetry: [96%] interpreted as [normal on room air] by me [Manager Er: [Regular Rate, Regular rhythm, no ectopy, NSR] reviewed and interpreted by me] Additionally notably showing: [Transient tachycardia noted. There is no evidence of hypotension. . Tachycardic appears to be positional. Laboratory studies unremarkable. Troponins are negative twice. Slightly low albumin noted.] Tests considered but not ordered include: [Imaging has been considerably does not appear to be necessary in the setting] Social Determinants of Health Impact: Patient was evaluated in [facility] [place] to healthcare due to below par ratio of patient to medical providers. [] Comorbid Conditions Impacting Present Evaluation and Care/Treatment: [Multiple including Parkinson's] Management Discussions with other Healthcare Providers: [None] Treatment and Disposition Medication Management (Given or considered): [Fluids]. See EMR for details Consideration for Hospitalization/Escalation/Deescalation of Care: Admission for observation has been considered, [however the patient is able to tolerate p.o., their symptoms are controlled, they are able to rely on oral medications, and their chief complaint/diagnosis can be managed on outpatient basis.] ?ED Course:?[No clinical deterioration during observation, no evidence of hypotension] ?Shared decision making:?[Patient is hemodynamically stable for discharge home with follow with their primary care provider. [ ] Specific and cautious return precautions provided and discussed with full understanding. Any incidental findings were also discussed and follow up recommendations given. [] All questions answered. Patient/family were able to verbalize back return precautions. Patient/family agree to plan. Copies of imaging and laboratory studies were provided.] Code status:?FULL Please see the full Electronic Medical Record for full details of nursing documentation, medications list, other records of complete past medical history and conditions, vital signs, laboratory studies, and any radiologic study interpretations by radiologists. Portions of this note were completed using [employer] dictation software and as a result there may exist minor errors in spelling. I have reviewed elements of past family and social history and agree as included in note. Departure Disposition: 01 HOME / SELF CARE / HOMELESS Impression: Primary Impression: Transient hypotension Additional Impression: Generalized weakness Condition: Improved Discharge Instructions: Hypotension, [id number] Referrals: NO PRIMARY CARE PROVIDER (PCP) Education Educated: Patient Educated regarding: diagnosis, treatment, prognosis, need for follow up Signature Scribe Signature: No scribe Attestation: This note accurately reflects clinical decisions, work performed by myself, Jose Guadalupe Giron, JOSE GUADALUPE MONTA[place] DO Sep 13, 2024 11:07
--- NOTE | 2024-09-13 11:17 | ELECTROCARDIOGRAPH REPORT ---
[facility] Test Date: 2024-09-13 Test Time: 10:49:24 Pat Name: ADRIANA KIDD Department: EMERGENCY ROOM Room: Gender: M School Resource Officer: : 1955 Requested By: MATT GIRON Order Number: [id number] Reading MD: Measurements Intervals [place] Rate: 77 P: 12 PA: 157 QRS: -83 QRSD: 100 T: 23 QT: 392 QTc: 444 Interpretive Statements Sinus rhythm Inferior infarct, old Please click the below link to view image of tracing.
[2024-09-13 11:35] LABS: MEAN PLATELET VOLUME 7.1 FL (7.4-10.4); RED CELL DISTRIBUTION WIDTH 13.0 % (11.5-14.5)
[2024-09-13] MEDS: normal saline 1000ML IV soln IVB ONE (11:37)
[2024-09-13 11:55] LABS: CREATININE 0.80 MG/DL (0.60-1.10); TOTAL CARBON DIOXIDE 27.4 MMOL/L (24-32); eCRCL 81 ML/MIN; eGFR > 90 ML/MIN
[2024-09-13 12:09] LABS: LEUKOCYTE ESTERASE ,URINE NEGATIVE (Neg); NITRITES, URINE NEGATIVE (Neg); OCCULT BLOOD,URINE NEGATIVE (Neg)
[2024-09-13 12:17] LABS: UA COLLECTION TYPE URINAL
[2024-09-13 12:18] LABS: AMORPHOUS URATES 1+
[2024-09-13 12:23] LABS: SQUAMOUS EPITHELIAL CELL,UR NONE SEEN /LPF (FEW)
[2024-09-13 15:46] VITALS: BP 145/89; PULSE 82; RESP 16; TEMP 98; O2SAT 95
== END 2024-09-13 15:47 | disposition home or self-care (01) ==
LOC: ER 10:43
DX: I95.9 Hypotension, unspecified (principal); R53.1 Weakness; F02.80 Dementia in other diseases classified elsewhere, unspecified severity, without behavioral disturbance, psychotic disturbance, mood disturbance, and anxiety; G20.A1 Parkinson's disease without dyskinesia, without mention of fluctuations; Z79.82 Long term (current) use of aspirin
CPT/HCPCS: 36415; 80053; 81001; 83735; 84484; 85025; 93005; 96360; 99285; J7030; J7040

== ENCOUNTER 2024-09-23 10:41 | Emergency (ER) | payer OTHER, MEDICARE ==
[~2024-09-23] VITALS: Ht 170.2 cm; Wt 75.0 kg
[2024-09-23 10:42] VITALS: TEMP 96.8
--- NOTE | 2024-09-23 11:26 | Physician Documentation ---
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 Patient states that he is here due to double vision. Patient states he has had double vision for 2-3 months. Patient also has an ophthalmology appointment and wears glasses. Patient states that this morning he decided to Google "double vision" was concerned for a possible stroke. Patient called the [place] nurse hotline who recommended him come into the emergency room today. Patient denies any recent head trauma. Denies any recent falls. Patient was concerned that he also potentially as double vision due to the intense pain from his chronic knees. Medication Reconciliation Allergies: Coded Allergies: pseudoephedrine (Unverified Adverse Reaction, Mild, URINARY RETENTION, 07/12/24) Scheduled Aspirin (Children's Aspirin), 81 MG PO DAILY@0830 Atorvastatin Calcium (Atorvastatin Calcium), 40 MG PO DAILY Carbidopa/Levodopa (Carbidopa-Levodopa 25-100 Tab), 1 CAPSULE PO TID, (Reported) Docusate Sodium (Docusate Sodium), 1 CAP PO BID, (Reported) Donepezil Hcl (Donepezil Hcl), 10 MG PO HS, (Reported) Empagliflozin (Jardiance), 1 TAB PO DAILY Fluoxetine HCl (Fluoxetine HCl), 20 MG PO DAILY Losartan Potassium (Losartan Potassium), 25 MG PO DAILY Metoprolol Succinate (Metoprolol Succinate), 25 MG PO DAILY Scheduled PRN Hydrocodone Bit/Acetaminophen 5/325 MG (Lima 5/325 MG), 1 TAB PO Q4H PRN for moderate or severe pain, (Reported) Past Medical History Past Medical History: Dementia, Parkinson's Disease, Chronic Pain, *PSYCH* Past Surgical History: abdominal surgery Patient History: FH: lung cancer MOTHER, , Age: 60 years and older FH: lymphoma, malignant Sister, , Age: 60 years and older Overdose FATHER, , Age: 50's - 60 Alcohol Use: None Drug Use: none Lives with: Alone Lives In: Home Review of Systems All Other Systems at this time: Reviewed and Negative Eyes: Reports: see HPI Physical Exam Vital Signs: RN Vital Signs have been reviewed: Yes, Temperature: 96.8, Source: Temporal, Heart Rate: 100, Respiratory Rate: 17, BP: 108/69, Pulse Oximetry: 100, Weight: 75.000 General Appearance: alert, WD/WN, no apparent distress Eye Lid: normal inspection Conjunctiva: normal inspection Cornea: normal inspection Pupils/EOM/Fundus: PERRLA, EOM intact Respiratory: lungs clear, normal breath sounds, no respiratory distress Chest: no accessory muscle use Cardiovascular: normal peripheral pulses, regular rate, rhythm Gastrointestinal: non-tender, bowels sounds present Skin: normal color, warm/dry; No: rash Neurologic: oriented x4 Psychiatric: normal mood/affect (Baseline a little flat monotone) Progress Results/Orders Results/Orders Vital Signs 09/23/24 09/23/24 09/23/24 10:42 10:53 12:28 Temp 96.8 Pulse 100 112 Resp 15 17 20 B/P (MAP) 108/69 132/84 Pulse Ox 100 98 EKG/XRAY/CT/US/VASC/MRI EKG : Additional Comment EKG 1055 sinus tachycardia at 103 beats per minute no acute ST-T abnormalities left axis deviation old inferior infarct noted Medical Decision Making Findings Records reviewed patient was recently worked up for blurry vision and had a negative head CT. Patient denies seeing devils, having any auditory or visual hallucinations. Sherice in double does sound very similar as he does have a slight monotone to his speech this could have been misunderstood. Patient's vital signs are reassuring. Discussed upcoming ophthalmology appointment and follow up with primary care Departure Time of Disposition: 12:03 Disposition: 01 HOME / SELF CARE / HOMELESS Impression: Primary Impression: Blurry vision Condition: Stable Discharge Instructions: Medical Screening Exam Additional Instructions: During your previous visit you were worked up for blurry vision and your head scan was normal as use stated this has been going on for 2-3 months you do need to follow up with primary care and maintain your appointment with Ophthalmology. Monitor for any new or worsening symptoms and feel free to return to the ER. Referrals: NO PRIMARY CARE PROVIDER (PCP) Education Educated: Patient Educated regarding: diagnosis, treatment, need for follow up Signature Scribe Signature: No scribe Attestation: The note accurately reflects work and decisions made by me.Marta TOMLINSON 09/23/24 12:04 MARTA TAPIA NP Sep 23, 2024 11:25
--- NOTE | 2024-09-23 11:47 | ELECTROCARDIOGRAPH REPORT ---
[facility] Test Date: 2024-09-23 Test Time: 10:55:57 Pat Name: ADRIANA KIDD Department: EMERGENCY ROOM Room: Gender: M Provider Network Manager: ALANA : 1955 Requested By: DEPARTMENT EMERGENCY Order Number: [id number] Reading MD: Measurements Intervals [place] Rate: 103 P: 41 AR: 179 QRS: -77 QRSD: 104 T: 25 QT: 350 QTc: 458 Interpretive Statements Sinus tachycardia Inferior infarct, old Please click the below link to view image of tracing.
[2024-09-23 12:28] VITALS: BP 132/84; PULSE 112; RESP 20; O2SAT 98
== END 2024-09-23 12:18 | disposition home or self-care (01) ==
LOC: ER 10:41
DX: H53.8 Other visual disturbances (principal); F02.80 Dementia in other diseases classified elsewhere, unspecified severity, without behavioral disturbance, psychotic disturbance, mood disturbance, and anxiety; G20.A1 Parkinson's disease without dyskinesia, without mention of fluctuations; Z79.82 Long term (current) use of aspirin; Z79.899 Other long term (current) drug therapy
CPT/HCPCS: 93005; 99283